=== PATIENT | male | born 1980 | race Caucasian/White ===

== ENCOUNTER 2021-04-13 13:23 | Observation (INO) ==
[2021-04-13] MEDS ORDERED: LORazepam 1 MG/2 ML VIAL IV STA (13:49)
[2021-04-13] MEDS ORDERED: THIAMINE HCL 200 MG in SODIUM CHLORIDE 0.9% 50 ML IV STA (13:49)
[2021-04-13] MEDS ORDERED: ONDANSETRON INJ 2 MG/ML 2 ML VIAL IV STA (13:49)
[2021-04-13] MEDS ORDERED: SODIUM CHLORIDE 0.9% 1000ML 1,000 ML IV STA (13:49)
--- NOTE | 2021-04-13 14:00 | Emergency Department Note ---
Impression & Plan Chest pain, Abnormal EKG, Alcohol intoxication, Abdominal pain, epigastric ED Provider Note NAME: CORINNA BOLAND AGE: 40 SEX: M : 1980 ARRIVES VIA: Walk-In INFORMANT: Patient, ED PROVIDER(S): Kash Salazar DO CHIEF COMPLAINT: Nausea HPI: The patient is a 40-year-old male who presented to the emergency department for an evaluation of nausea. The patient has a history of chronic alcoholism. He does drink alcohol almost daily. He drinks mostly hard liquor including rum. The patient states he started feeling ill over the last 2 to 3 days. He denies having a fever. Has had a nonproductive cough. He has pain in his epigastric region as well as his upper abdomen. He denies having any lower extremity pain or swelling. He has had no recent falls. He is no seizure or blackouts. The patient thinks he might be having withdrawal symptoms. He did not see a provider prior to coming to the emergency department. He tried drinking some rum today prior to coming to the emergency department with no improvement of his symptoms. The patient has had no hematemesis or black stools. ROS: See above HPI for pertinent positives & negatives. A total of 10 systems reviewed and were otherwise negative. PAST MEDICAL HISTORY: See Below PAST SURGICAL HISTORY: See Below FAMILY HISTORY: See Below SOCIAL HISTORY: See Below HOME MEDICATIONS: See Below ALLERGIES: See Below VITALS: See Below PHYSICAL EXAMINATION: GENERAL: The patient is awake and alert. The patient is somewhat anxious appea ring. EYES: The conjunctivae are clear. The pupils are round and reactive. EARS, NOSE, MOUTH AND THROAT: The nose is without any evidence of any deformity. NECK: The neck is nontender and supple. RESPIRATORY: Normal respiratory effort is noted there is no evidence of wheezing rhonchi or rales CARDIOVASCULAR: Tachycardic rate with regular rhythm was noted. There is no definite murmur. GASTROINTESTINAL: The abdomen is mildly distended and diffusely tender. There is no specific guarding or rigidity noted. MUSCULOSKELETAL/EXTREMITIES: There is no evidence of gross deformity full range of motion is noted in the hips and shoulders. SKIN: There is no obvious evidence of any rash. There are no petechiae, pallor or cyanosis noted. NEUROLOGIC: Patient is awake alert and oriented x3 strength is symmetric patellar reflexes are 2+ bilaterally MEDICAL DECISION MAKING: The patient is a 40-year-old male who presented to the emergency department for an evaluation of epigastric pain. The patient has a history of alcohol abuse. The patient was treated with IV fluids and IV antiemetics. He was also treated with proton pump inhibitor and H2 blockers. The patient's EKG showed ischemic changes. They were not related to any specific electrolyte abnormality. I discussed the patient's laboratory and radiographic studies with him because of his abnormal EKG he also had further radiographic studies including CT of the chest abdomen and pelvis. The patient was reevaluated multiple times and was feeling better on subsequent reevaluation. His cardiac biomarker was negative. Because of his abnormal findings I did discuss his case with the on-call [facility]. They have agreed to evaluate the patient in the emergency department for further management and disposition. Triage Nursing notes reviewed. Prior medical records reviewed Vital Signs: reviewed and remarkable for no significant abnormalities Differential diagnosis: Cardiac ischemia, aortic dissection, pulmonary embolism, pneumothorax, pneumonia, pericarditis, myocarditis, esophageal rupture, GERD, cholecystitis, pancreatitis, musculoskeletal, as well as other pathologies. ER treatment provided: See below Diagnostics interpreted by me: ECG: EKG was obtained in the emergency department. My interpretation is sinus tachycardia 105 bpm. There was no ectopy. Inferior and lateral T wave versions were noted. Inferior lateral ST segment abnormalities were noted. LVH was suggested by voltage criteria. This was compared to a tracing from June [id number]. The changes are new compared to the earlier tracing. Cardiac Monitoring: An order was placed for continuous cardiac monitoring. The monitor shows a rate of 110 bpm with sinus tach rhythm. Laboratory studies: As stated above and show below. Imaging studies: See below Consultation(s): 1650: I discussed this case with Dr. Acuna who is on-call for the [facility] group. Past Med/Surg History Medical History GERD (gastroesophageal reflux disease) Surgical History No significant past surgical history Family History (Updated 04/13/21 @ 17:46 by Sweta cAuna DO) Other Family history non-contributory Social History Smoking Status: Never smoker Hx Alcohol Use: Yes Alcohol type: beer and hard liquor Alcohol Intake Frequency: 4 or More x per/Week Hx Substance Use: No Preferred Language: Dutch Communication Ability: Effective [employer] Operator Required: No Beliefs That Will Affect Care: None marital status: Current Living Situation: Spouse and Family Current Living Situation Comment: Two sons. current occupational status: employed Other Information That Helps Us Care for You: No Feels Safe at Home: Yes Safety Concerns: Feels Safe At This Time Assistive Devices: None Allergies Allergies Allergy/AdvReac Type Severity Reaction Status Date / Time No Known Allergies Allergy Unverified 04/13/21 14:44 Home Meds Home Medications Medication Instructions Recorded Confirmed omeprazole 20 mg capsule,delayed 20 mg PO QAM 06/29/20 04/13/21 release smzfofcr-yhdrmuva-ntrgm acid 400 1 tab PO QAM 04/13/21 04/13/21 mcg-vit K 20 mcg-lycop 300 mcg tablet (One-A-Day Men's Multivitamin) Results & Data (ED) Vital Signs Vital Signs - 24 hr 04/13/21 13:35 04/13/21 14:30 04/13/21 16:00 Temperature 37.3 C Temperature Source Oral Pulse Rate 132 H 99 H 119 H Pulse Rate from SpO2 Sensor 100 H Pulse Rhythm Regular Pulse Strength Normal Respiratory Rate 20 25 H 14 Respiratory Effort / Characteristics Non-Labored Spontaneous Respiratory Depth Normal Respiratory Pattern Regular Blood Pressure 142/103 H 137/94 128/94 Blood Pressure Mean 116 108 105 Blood Pressure Position Sitting Pulse Oximetry 95 94 96 Oxygen Delivery Method Room Air Sepsis Recent Fever Within 48 Hours No Sepsis New/Unexplained Change in Mental Status No Sepsis Action Taken by Nursing No Action Required 04/13/21 16:30 04/13/21 17:00 04/13/21 17:30 Temperature Temperature Source Pulse Rate 98 H 117 H 119 H Pulse Rate from SpO2 Sensor 113 H 112 H Pulse Rhythm Pulse Strength Respiratory Rate 22 20 22 Respiratory Effort / Characteristics Respiratory Depth Respiratory Pattern Blood Pressure 125/89 146/109 H 146/91 H Blood Pressure Mean 101 121 109 Blood Pressure Position Pulse Oximetry 96 95 94 Oxygen Delivery Method Sepsis Recent Fever Within 48 Hours Sepsis New/Unexplained Change in Mental Status Sepsis Action Taken by Jail Medications Current Medication List: was personally reviewed by me Laboratory Data Attestation: I reviewed the patient's lab results. Result diagrams: 04/13/21 14:03 04/13/21 14:03 Lab Results 04/13/21 04/13/21 04/13/21 Range/Units 14:03 14:03 14:03 WBC 6.28 (4.8-10.8) K/uL RBC 5.09 (4.7-6.1) M/uL Hgb 16.2 (14.0-18.0) g/dL POC Hgb (14.0-18.0) g/dl Hct 47.5 (42-52) % POC Hct (42-52) % MCV 93.3 (80-100) fL MCH 31.8 (25-34) pg MCHC 34.1 (32-36) g/dL RDW Std Deviation 43.9 (36.4-46.3) fL RDW Coeff of Dudley 12.7 (11.5-14.5) % Plt Count 281 (130-400) K/uL MPV 10.1 (7.4-10.4) fL Immature Gran % (Auto) 0.2 % Neut % (Auto) 62.5 % Lymph % (Auto) 30.1 % Valencia % (Auto) 5.7 % Eos % (Auto) 1.0 % Baso % (Auto) 0.5 % Neut # (Auto) 3.93 (1.4-6.5) K/uL Lymph # (Auto) 1.89 (1.2-3.4) K/uL Valencia # (Auto) 0.36 (0.11-0.59) K/uL Eos # (Auto) 0.06 (0-0.5) K/uL Baso # (Auto) 0.03 (0-0.2) K/uL Immature Gran # (Auto) 0.01 (0.00-0.02) K/uL PT 9.8 (9.0-12.0) Seconds INR 1.0 (0.9-1.1) APTT 24.5 (21.0-31.0) Seconds PTT Ratio 0.9 POC Sodium (135-144) mmol/L Sodium 139 (136-145) mmol/L POC Potassium (3.3-5.0) mmol/L Potassium 3.7 (3.5-5.1) mmol/L POC Chloride (101-112) mmol/L Chloride 105 (98-107) mmol/L Carbon Dioxide 27 (21-32) mmol/L POC Total CO2 (24-31) mmol/L Anion Gap 7.0 (3-11) POC Anion Gap (16-25) mmol/L POC BUN (7-18) mg/dl BUN 6 L (7-18) mg/dl Creatinine 1.05 (0.6-1.4) mg/dl POC Creatinine (0.6-1.3) mg/dl Est Cr Clr Drug Dosing 100.0 ml/min Est GFR ( Amer) 103.1 ml/min Est GFR (Non-Af Amer) 89.0 ml/min BUN/Creatinine Ratio 6.0 L (10-20) Glucose 108 H (70-99) mg/dl POC Glucose (other) (70-99) mg/dl Calcium 9.1 (8.5-10.1) mg/dl POC Ioniz Calcium Cierra (1.12-1.32) mmol/l Magnesium (1.8-2.4) mg/dl Total Bilirubin 0.5 (0.2-1) mg/dl AST 69 H (15-37) U/L ALT 60 (12-78) U/L Alkaline Phosphatase 97 (45-117) U/L Troponin I < 0.015 (0-0.045) ng/ml Total Protein 8.5 H (6.4-8.2) gm/dl Albumin 4.1 (3.4-5.0) gm/dl Globulin 4.4 H (2.5-4.0) gm/dl Albumin/Globulin Ratio 0.9 (0.9-2) Lipase 295 (73-393) U/L TSH (0.300-4.500) uIu/ml Urine Color Urine Appearance (Clear) Urine pH (4.5-7.5) Ur Specific [place] (1.000-1.030) Urine Protein (Negative) Urine Glucose (UA) (Negative) Urine Ketones (Negative) Urine Blood (Negative) Urine Nitrite (Negative) Urine Bilirubin (Negative) Urine Urobilinogen (Negative) Ur Leukocyte Esterase (Negative) Urine Opiates Screen (Neg) Ur Methadone, Qual (Neg) Urine Barbiturates (Neg) Ur Phencyclidine (PCP) (Neg) U Amphetamin/Meth Scrn (Neg) MDMA (Ecstasy) Screen (Neg) U Benzodiazepines Scrn (Neg) Ur Cocaine Metabolite (Neg) U Marijuana (THC) Screen (Neg) Ethyl Alcohol mg/dL (0-3) mg/dl COVID-19 Eval Order SARS-CoV-2 (PCR) (Negative) 04/13/21 04/13/21 04/13/21 Range/Units 14:03 14:03 14:14 WBC (4.8-10.8) K/uL RBC (4.7-6.1) M/uL Hgb (14.0-18.0) g/dL POC Hgb 17.0 (14.0-18.0) g/dl Hct (42-52) % POC Hct 50 (42-52) % MCV (80-100) fL MCH (25-34) pg MCHC (32-36) g/dL RDW Std Deviation (36.4-46.3) fL RDW Coeff of Dudley (11.5-14.5) % Plt Count (130-400) K/uL MPV (7.4-10.4) fL Immature Gran % (Auto) % Neut % (Auto) % Lymph % (Auto) % [place] % (Auto) % Eos % (Auto) % Baso % (Auto) % Neut # (Auto) (1.4-6.5) K/uL Lymph # (Auto) (1.2-3.4) K/uL [place] # (Auto) (0.11-0.59) K/uL Eos # (Auto) (0-0.5) K/uL Baso # (Auto) (0-0.2) K/uL Immature Gran # (Auto) (0.00-0.02) K/uL PT (9.0-12.0) Seconds INR (0.9-1.1) APTT (21.0-31.0) Seconds PTT Ratio POC Sodium 142 (135-144) mmol/L Sodium (136-145) mmol/L POC Potassium 3.7 (3.3-5.0) mmol/L Potassium (3.5-5.1) mmol/L POC Chloride 102 (101-112) mmol/L Chloride (98-107) mmol/L Carbon Dioxide (21-32) mmol/L POC Total CO2 24 (24-31) mmol/L Anion Gap (3-11) POC Anion Gap 21.0 (16-25) mmol/L POC BUN 5 L (7-18) mg/dl BUN (7-18) mg/dl Creatinine (0.6-1.4) mg/dl POC Creatinine 1.3 (0.6-1.3) mg/dl Est Cr Clr Drug Dosing ml/min Est GFR ( Amer) ml/min Est GFR (Non-Af Amer) ml/min BUN/Creatinine Ratio (10-20) Glucose (70-99) mg/dl POC Glucose (other) 110 H (70-99) mg/dl Calcium (8.5-10.1) mg/dl POC Ioniz Calcium Cierra 1.01 L (1.12-1.32) mmol/l Magnesium 2.2 (1.8-2.4) mg/dl Total Bilirubin (0.2-1) mg/dl AST (15-37) U/L ALT (12-78) U/L Alkaline Phosphatase (45-117) U/L Troponin I (0-0.045) ng/ml Total Protein (6.4-8.2) gm/dl Albumin (3.4-5.0) gm/dl Globulin (2.5-4.0) gm/dl Albumin/Globulin Ratio (0.9-2) Lipase (73-393) U/L TSH 2.050 (0.300-4.500) uIu/ml Urine Color Urine Appearance (Clear) Urine pH (4.5-7.5) Ur Specific [place] (1.000-1.030) Urine Protein (Negative) Urine Glucose (UA) (Negative) Urine Ketones (Negative) Urine Blood (Negative) Urine Nitrite (Negative) Urine Bilirubin (Negative) Urine Urobilinogen (Negative) Ur Leukocyte Esterase (Negative) Urine Opiates Screen (Neg) Ur Methadone, Qual (Neg) Urine Barbiturates (Neg) Ur Phencyclidine (PCP) (Neg) U Amphetamin/Meth Scrn (Neg) MDMA (Ecstasy) Screen (Neg) U Benzodiazepines Scrn (Neg) Ur Cocaine Metabolite (Neg) U Marijuana (THC) Screen (Neg) Ethyl Alcohol mg/dL 305.0 H (0-3) mg/dl COVID-19 Eval Order SARS-CoV-2 (PCR) (Negative) 04/13/21 04/13/21 04/13/21 Range/Units 16:34 16:34 16:51 WBC (4.8-10.8) K/uL RBC (4.7-6.1) M/uL Hgb (14.0-18.0) g/dL POC Hgb (14.0-18.0) g/dl Hct (42-52) % POC Hct (42-52) % MCV (80-100) fL MCH (25-34) pg MCHC (32-36) g/dL RDW Std Deviation (36.4-46.3) fL RDW Coeff of Dudley (11.5-14.5) % Plt Count (130-400) K/uL MPV (7.4-10.4) fL Immature Gran % (Auto) % Neut % (Auto) % Lymph % (Auto) % [place] % (Auto) % Eos % (Auto) % Baso % (Auto) % Neut # (Auto) (1.4-6.5) K/uL Lymph # (Auto) (1.2-3.4) K/uL [place] # (Auto) (0.11-0.59) K/uL Eos # (Auto) (0-0.5) K/uL Baso # (Auto) (0-0.2) K/uL Immature Gran # (Auto) (0.00-0.02) K/uL PT (9.0-12.0) Seconds INR (0.9-1.1) APTT (21.0-31.0) Seconds PTT Ratio POC Sodium (135-144) mmol/L Sodium (136-145) mmol/L POC Potassium (3.3-5.0) mmol/L Potassium (3.5-5.1) mmol/L POC Chloride (101-112) mmol/L Chloride (98-107) mmol/L Carbon Dioxide (21-32) mmol/L POC Total CO2 (24-31) mmol/L Anion Gap (3-11) POC Anion Gap (16-25) mmol/L POC BUN (7-18) mg/dl BUN (7-18) mg/dl Creatinine (0.6-1.4) mg/dl POC Creatinine (0.6-1.3) mg/dl Est Cr Clr Drug Dosing ml/min Est GFR ( Amer) ml/min Est GFR (Non-Af Amer) ml/min BUN/Creatinine Ratio (10-20) Glucose (70-99) mg/dl POC Glucose (other) (70-99) mg/dl Calcium (8.5-10.1) mg/dl POC Ioniz Calcium Cierra (1.12-1.32) mmol/l Magnesium (1.8-2.4) mg/dl Total Bilirubin (0.2-1) mg/dl AST (15-37) U/L ALT (12-78) U/L Alkaline Phosphatase (45-117) U/L Troponin I (0-0.045) ng/ml Total Protein (6.4-8.2) gm/dl Albumin (3.4-5.0) gm/dl Globulin (2.5-4.0) gm/dl Albumin/Globulin Ratio (0.9-2) Lipase (73-393) U/L TSH (0.300-4.500) uIu/ml Urine Color Yellow Urine Appearance Clear (Clear) Urine pH 5.5 (4.5-7.5) Ur Specific [place] > 1.045 H (1.000-1.030) Urine Protein Negative (Negative) Urine Glucose (UA) Negative (Negative) Urine Ketones Negative (Negative) Urine Blood Negative (Negative) Urine Nitrite Negative (Negative) Urine Bilirubin Negative (Negative) Urine Urobilinogen Negative (Negative) Ur Leukocyte Esterase Negative (Negative) Urine Opiates Screen (Neg) Ur Methadone, Qual (Neg) Urine Barbiturates (Neg) Ur Phencyclidine (PCP) (Neg) U Amphetamin/Meth Scrn (Neg) MDMA (Ecstasy) Screen (Neg) U Benzodiazepines Scrn (Neg) Ur Cocaine Metabolite (Neg) U Marijuana (THC) Screen (Neg) Ethyl Alcohol mg/dL (0-3) mg/dl COVID-19 Eval Order Covid19 at [facility] SARS-CoV-2 (PCR) NEGATIVE (Negative) 04/13/21 Range/Units 16:51 WBC (4.8-10.8) K/uL RBC (4.7-6.1) M/uL Hgb (14.0-18.0) g/dL POC Hgb (14.0-18.0) g/dl Hct (42-52) % POC Hct (42-52) % MCV (80-100) fL MCH (25-34) pg MCHC (32-36) g/dL RDW Std Deviation (36.4-46.3) fL RDW Coeff of Dudley (11.5-14.5) % Plt Count (130-400) K/uL MPV (7.4-10.4) fL Immature Gran % (Auto) % Neut % (Auto) % Lymph % (Auto) % [place] % (Auto) % Eos % (Auto) % Baso % (Auto) % Neut # (Auto) (1.4-6.5) K/uL Lymph # (Auto) (1.2-3.4) K/uL [place] # (Auto) (0.11-0.59) K/uL Eos # (Auto) (0-0.5) K/uL Baso # (Auto) (0-0.2) K/uL Immature Gran # (Auto) (0.00-0.02) K/uL PT (9.0-12.0) Seconds INR (0.9-1.1) APTT (21.0-31.0) Seconds PTT Ratio POC Sodium (135-144) mmol/L Sodium (136-145) mmol/L POC Potassium (3.3-5.0) mmol/L Potassium (3.5-5.1) mmol/L POC Chloride (101-112) mmol/L Chloride (98-107) mmol/L Carbon Dioxide (21-32) mmol/L POC Total CO2 (24-31) mmol/L Anion Gap (3-11) POC Anion Gap (16-25) mmol/L POC BUN (7-18) mg/dl BUN (7-18) mg/dl Creatinine (0.6-1.4) mg/dl POC Creatinine (0.6-1.3) mg/dl Est Cr Clr Drug Dosing ml/min Est GFR ( Amer) ml/min Est GFR (Non-Af Amer) ml/min BUN/Creatinine Ratio (10-20) Glucose (70-99) mg/dl POC Glucose (other) (70-99) mg/dl Calcium (8.5-10.1) mg/dl POC Ioniz Calcium Cierra (1.12-1.32) mmol/l Magnesium (1.8-2.4) mg/dl Total Bilirubin (0.2-1) mg/dl AST (15-37) U/L ALT (12-78) U/L Alkaline Phosphatase (45-117) U/L Troponin I (0-0.045) ng/ml Total Protein (6.4-8.2) gm/dl Albumin (3.4-5.0) gm/dl Globulin (2.5-4.0) gm/dl Albumin/Globulin Ratio (0.9-2) Lipase (73-393) U/L TSH (0.300-4.500) uIu/ml Urine Color Urine Appearance (Clear) Urine pH (4.5-7.5) Ur Specific [place] (1.000-1.030) Urine Protein (Negative) Urine Glucose (UA) (Negative) Urine Ketones (Negative) Urine Blood (Negative) Urine Nitrite (Negative) Urine Bilirubin (Negative) Urine Urobilinogen (Negative) Ur Leukocyte Esterase (Negative) Urine Opiates Screen Neg (Neg) Ur Methadone, Qual Neg (Neg) Urine Barbiturates Neg (Neg) Ur Phencyclidine (PCP) Neg (Neg) U Amphetamin/Meth Scrn Neg (Neg) MDMA (Ecstasy) Screen Neg (Neg) U Benzodiazepines Scrn Neg (Neg) Ur Cocaine Metabolite Neg (Neg) U Marijuana (THC) Screen Neg (Neg) Ethyl Alcohol mg/dL (0-3) mg/dl COVID-19 Eval Order SARS-CoV-2 (PCR) (Negative) Administered Medications Sodium Chloride (Nss 1000ml) 1,000 mls @ 125 mls/hr IV .Q8H TROY Stop: 04/14/21 11:04 Last Admin: 04/13/21 19:39 Dose: 125 mls/hr Documented by: [id number] Folic Acid 1 mg/ Syringe 10 mls @ 5 mls/min IV QAM TROY Stop: 05/13/21 19:59 Last Admin: 04/13/21 20:30 Dose: 5 mls/min Documented by: [id number] Discontinued Medications Gabapentin (Gabapentin 600 Mg Tab) 1,200 mg PO 1999 ONE Stop: 04/13/21 20:01 Last Admin: 04/13/21 20:30 Dose: 1,200 mg Documented by: [id number] Sodium Chloride (Nss 1000ml) 1,000 mls @ 999 mls/hr IV .Q1H1M STA Stop: 04/13/21 14:49 Last Infusion: 04/13/21 15:20 Dose: 0 mls/hr Documented by: [id number] Admin: 04/13/21 14:19 Dose: 999 mls/hr Documented by: [id number] Lorazepam (Ativan) 1 mg in 2 mls @ 2 mls/min IV NOW STA Stop: 04/13/21 13:50 Last Admin: 04/13/21 14:19 Dose: 2 mls/min Documented by: [id number] Thiamine HCl 200 mg/ Sodium (Chloride) 52 mls @ 208 mls/hr IV NOW STA Stop: 04/13/21 14:03 Last Infusion: 04/13/21 14:51 Dose: 0 mls/hr Documented by: [id number] Admin: 04/13/21 14:36 Dose: 208 mls/hr Documented by: [id number] Famotidine (Pepcid 20mg Iv Push) 20 mg in 5 mls @ 2.5 mls/min IV NOW STA Stop: 04/13/21 16:37 Last Admin: 04/13/21 17:25 Dose: 2.5 mls/min Documented by: [id number] Pantoprazole Sodium 40 mg/ (Syringe) 10 mls @ 5 mls/min IV NOW ONE Stop: 04/13/21 16:37 Last Admin: 04/13/21 17:25 Dose: 5 mls/min Documented by: [id number] Lorazepam (Ativan) 2 mg in 4 mls @ 4 mls/min IV NOW STA Stop: 04/13/21 17:29 Last Admin: 04/13/21 17:33 Dose: 4 mls/min Documented by: [id number] Ioversol (Optiray 320 125ml) 120 ml IV ONCE ONE Stop: 04/13/21 15:04 Last Admin: 04/13/21 15:03 Dose: 120 ml Documented by: [id number] Lorazepam (Lorazepam 2 Mg/4 Ml Vial) Confirm Administered Dose 2 mg .ROUTE .STK- MED ONE Stop: 04/13/21 17:31 Last Admin: 04/13/21 17:33 Dose: Not Given Documented by: [id number] Ondansetron HCl (Ondansetron Inj 2 Mg/Ml 2 Ml Vial) 4 mg IV NOW STA Stop: 04/13/21 13:50 Last Admin: 04/13/21 14:20 Dose: 4 mg Documented by: [id number] Imaging Data Radiologist's Impression: KUB X-Ray 04/13/21 13:49 XR chest 1V portable, XR KUB/Abdomen 1 view HISTORY: 40 years-old Male pain acute chest and abdominal pain COMPARISON: Chest radiograph 06/29/2020 TECHNIQUE: AP view the chest with KUB radiograph FINDINGS: Cardiac mediastinal and hilar silhouettes are within normal limits. No pneumothorax, pleural effusion, airspace consolidation or overt pulmonary edema. No acute fracture. Nonobstructive bowel gas pattern. No pneumatosis or pneumoperitoneum. No urolith. IMPRESSION: 1. No acute processes of the chest. 2. Nonobstructive bowel gas pattern. ACT 112: Negative or not required by law. The above report was generated using voice recognition software. It may contain grammatical, syntax or spelling errors. Electronically signed by: Joe Clarke M.D. 04/13/2021 2:23 PM Chest X-Ray 04/13/21 13:51 XR chest 1V portable, XR KUB/Abdomen 1 view HISTORY: 40 years-old Male pain acute chest and abdominal pain COMPARISON: Chest radiograph 06/29/2020 TECHNIQUE: AP view the chest with KUB radiograph FINDINGS: Cardiac mediastinal and hilar silhouettes are within normal limits. No pneumothorax, pleural effusion, airspace consolidation or overt pulmonary edema. No acute fracture. Nonobstructive bowel gas pattern. No pneumatosis or pneumoperitoneum. No urolith. IMPRESSION: 1. No acute processes of the chest. 2. Nonobstructive bowel gas pattern. ACT 112: Negative or not required by law. The above report was generated using voice recognition software. It may contain grammatical, syntax or spelling errors. Electronically signed by: Joe Clarke M.D. 04/13/2021 2:23 PM Abdomen/Pelvis CT 04/13/21 14:43 CT angio chest PE protocol, CT abd pelvis IV con only HISTORY: 40 years-old Male with PE. Acute shortness breath with upper abdominal pain TECHNIQUE: Multiple CTA images of the chest were obtained after the intravenous administration of 120 ml Optiray. Coronal and sagittal MIPS were obtained from the axial data set and were submitted for review. All measurements were obtained according to NASCET criteria. CT abdomen and pelvis with IV contrast only was also obtained. A dose lowering technique was utilized adhering to the principles of ALARA. COMPARISON: None. FINDINGS: CTA: The segmental and subsegmental pulmonary tree all branches are suboptimally visualized secondary to respiratory motion. No pulmonary emboli identified. Normal thoracic aorta.Heart size is normal. CT CHEST: No dominant thyroid nodule is seen. No pathologically adenopathy by CT size criteria. There is no pneumothorax, pleural effusion or focal airspace consolidation. The imaged upper abdominal structures are normal. The osseous structures appear intact. CT ABDOMEN/PELVIS: No pneumatosis or pneumoperitoneum. Unremarkable spleen, pancreas and adrenal glands. Mild gallbladder distention with equivocal gallbladder wall thickening. Hepatic steatosis. No evidence of cirrhosis or hepatic mass lesion. Patency of the hepatic and portal veins. Unremarkable kidneys. No hydronephrosis. Mild to moderate urinary bladder distention. Aorta and IVC are unremarkable. There is no adenopathy. No bowel obstruction or bowel wall thickening. No ascites or mesenteric inflammation. Normal appendix. Tiny fat filled periumbilical hernia. No acute fracture. Transitional lumbosacral anatomy. IMPRESSION: 1. No acute intrathoracic abnormality. No pulmonary emboli. 2. No bowel obstruction or bowel wall thickening. Normal appendix. 3. Mild gallbladder distention with equivocal wall thickening. This finding could be correlated with right upper quadrant abdominal ultrasound if clinically indicated. 4. Hepatic steatosis. ACT 112: Negative or not required by law. The above report was generated using voice recognition software. It may contain grammatical, syntax or spelling errors. Electronically signed by: Joe Clarke M.D. 04/13/2021 3:41 PM Chest CTA 04/13/21 14:43 CT angio chest PE protocol, CT abd pelvis IV con only HISTORY: 40 years-old Male with PE. Acute shortness breath with upper abdominal pain TECHNIQUE: Multiple CTA images of the chest were obtained after the intravenous administration of 120 ml Optiray. Coronal and sagittal MIPS were obtained from the axial data set and were submitted for review. All measurements were obtained according to NASCET criteria. CT abdomen and pelvis with IV contrast only was also obtained. A dose lowering technique was utilized adhering to the principles of ALARA. COMPARISON: None. FINDINGS: CTA: The segmental and subsegmental pulmonary tree all branches are suboptimally visualized secondary to respiratory motion. No pulmonary emboli identified. Normal thoracic aorta.Heart size is normal. CT CHEST: No dominant thyroid nodule is seen. No pathologically adenopathy by CT size criteria. There is no pneumothorax, pleural effusion or focal airspace consolidation. The imaged upper abdominal structures are normal. The osseous structures appear intact. CT ABDOMEN/PELVIS: No pneumatosis or pneumoperitoneum. Unremarkable spleen, pancreas and adrenal glands. Mild gallbladder distention with equivocal gallbladder wall thickening. Hepatic steatosis. No evidence of cirrhosis or hepatic mass lesion. Patency of the hepatic and portal veins. Unremarkable kidneys. No hydronephrosis. Mild to moderate urinary bladder distention. Aorta and IVC are unremarkable. There is no adenopathy. No bowel obstruction or bowel wall thickening. No ascites or mesenteric inflammation. Normal appendix. Tiny fat filled periumbilical hernia. No acute fracture. Tra nsitional lumbosacral anatomy. IMPRESSION: 1. No acute intrathoracic abnormality. No pulmonary emboli. 2. No bowel obstruction or bowel wall thickening. Normal appendix. 3. Mild gallbladder distention with equivocal wall thickening. This finding could be correlated with right upper quadrant abdominal ultrasound if clinically indicated. 4. Hepatic steatosis. ACT 112: Negative or not required by law. The above report was generated using voice recognition software. It may contain grammatical, syntax or spelling errors. Electronically signed by: Joe Clarke M.D. 04/13/2021 3:41 PM Discharge Plan Visit Data Chief Complaint: Nausea Stated Complaint: CHEST PAIN, STOMACH PAIN ED Provider: Kash Salazar Discharge Problem: Chest pain, Abnormal EKG, Alcohol intoxication, Abdominal pain, epigastric Patient Disposition: Admitted As Inpatient Condition: Good Discharge Instructions Interventions: ED Discharge Assessment Last Done: 04/13/21 18:36 Discharge Problem: Chest pain Qualifiers: Chest pain type: unspecified Qualified Code(s): R07.9 - Chest pain, unspecified Alcohol intoxication Qualifiers: Complication of substance-induced condition: uncomplicated Qualified Code(s): F10.920 - Alcohol use, unspecified with intoxication, uncomplicated
--- NOTE | 2021-04-13 14:24 | XRay Report ---
XR chest 1V portable, XR KUB/Abdomen 1 view HISTORY: 40 years-old Male pain acute chest and abdominal pain COMPARISON: Chest radiograph 06/29/2020 TECHNIQUE: AP view the chest with KUB radiograph FINDINGS: Cardiac mediastinal and hilar silhouettes are within normal limits. No pneumothorax, pleural effusion , airspace consolidation or overt pulmonary edema. No acute fracture. Nonobstructive bowel gas pattern. No pneumatosis or pneumoperitoneum. No urolith. IMPRESSION: 1. No acute processes of the chest. 2. Nonobstructive bowel gas pattern. ACT 112: Negative or not required by law. The above report was generated using voice recognition software. It may contain grammatical, syntax o r spelling errors. Electronically signed by: Joe Clarke M.D. 04/13/2021 2:23 PM
[2021-04-13 14:26] LABS: iSTAT Creatinine 1.3 mg/dl (0.6-1.3); iSTAT Ionized Calcium 1.01 mmol/l (1.12-1.32); iSTAT Potassium 3.7 mmol/L (3.3-5.0)
[2021-04-13 14:31] LABS: Basophils # (auto) 0.03 K/uL (0-0.2); Basophils % (auto) 0.5 %; Eosinophils # (auto) 0.06 K/uL (0-0.5); Hematocrit (blood only) 47.5 % (42-52); Hemoglobin 16.2 g/dL (14.0-18.0); Immature Granulocytes # (auto) 0.01 K/uL (0.00-0.02); Immature Granulocytes % (auto) 0.2 %; Lymphocytes # (auto) 1.89 K/uL (1.2-3.4); Lymphocytes % (auto) 30.1 %; Mean Corpuscular Hemoglobin 31.8 pg (25-34); Mean Corpuscular Hgb Conc 34.1 g/dL (32-36); Mean Corpuscular Volume 93.3 fL (80-100); Mean Platelet Volume 10.1 fL (7.4-10.4); Monocytes # (auto) 0.36 K/uL (0.11-0.59); Monocytes % (auto) 5.7 %; Neutrophils # (auto) 3.93 K/uL (1.4-6.5); Neutrophils % (auto) 62.5 %; Platelet Count 281 K/uL (130-400); RDW Coefficient of Variation 12.7 % (11.5-14.5); RDW Standard Deviation 43.9 fL (36.4-46.3); Red Blood Count 5.09 M/uL (4.7-6.1); White Blood Count 6.28 K/uL (4.8-10.8)
[2021-04-13 14:42] LABS: Partial Thromboplastin Ratio 0.9; Partial Thromboplastin Time 24.5 Seconds (21.0-31.0); Prothrombin Time 9.8 Seconds (9.0-12.0)
[2021-04-13 14:51] LABS: Alanine Aminotransferase 60 U/L (12-78); Albumin Level 4.1 gm/dl (3.4-5.0); Aspartate Aminotransferase 69 U/L (15-37); Blood Urea Nitrogen 6 mg/dl (7-18); Calcium 9.1 mg/dl (8.5-10.1); Carbon Dioxide 27 mmol/L (21-32); Chloride 105 mmol/L (98-107); Est GFR (African American) 103.1 ml/min; Glucose 108 mg/dl (70-99); Lipase 295 U/L (73-393); Potassium 3.7 mmol/L (3.5-5.1); Sodium 139 mmol/L (136-145)
[2021-04-13 14:56] LABS: Albumin Globulin Ratio 0.9 (0.9-2); Alkaline Phosphatase 97 U/L (45-117); Bilirubin,Total 0.5 mg/dl (0.2-1); Globulin 4.4 gm/dl (2.5-4.0); Total Protein 8.5 gm/dl (6.4-8.2); Troponin I < 0.015 ng/ml (0-0.045)
[2021-04-13] MEDS ORDERED: OPTIRAY 320 125ml IV ONE (15:03)
[2021-04-13 15:22] LABS: Magnesium 2.2 mg/dl (1.8-2.4)
--- NOTE | 2021-04-13 15:42 | CT Scan Report ---
CT angio chest PE protocol, CT abd pelvis IV con only HISTORY: 40 years-old Male with PE. Acute shortness breath with upper abdominal pain TECHNIQUE: Multiple CTA images of the chest were obtained after the intravenous administration of 120 ml Optiray. Coronal and sagittal MIPS were obtained from the axial data set and were submitted for review. All measurements were obtained according to NASCET criteria. CT abdomen and pelvis with IV c ontrast only was also obtained. A dose lowering technique was utilized adhering to the principles of ALARA. COMPARISON: None. FINDINGS: CTA: The segmental and subsegmental pulmonary tree all branches are suboptimally visualized secondary to r espiratory motion. No pulmonary emboli identified. Normal thoracic aorta.Heart size is normal. CT CHEST: No dominant thyroid nodule is seen. No pathologically adenopathy by CT size criteria. There is no pn eumothorax, pleural effusion or focal airspace consolidation. The imaged upper abdominal structures are normal. The osseous structures appear intact. CT ABDOMEN/PELVIS: No pneumatosis or pneumoperitoneum. Unremarkable spleen, pancreas and adrenal glands. Mild gallbladde r distention with equivocal gallbladder wall thickening. Hepatic steatosis. No evidence of cirrhosis or hepatic mass lesion. Patency of the hepatic and portal veins. Unremarkable kidneys. No hydronephrosis. Mild to moderate urinary bladder distention. Aorta and IVC a re unremarkable. There is no adenopathy. No bowel obstruction or bowel wall thickening. No ascites or mesenteric inflammation. Normal appendix. Tiny fat filled periumbilical hernia. No acute fracture. T ransitional lumbosacral anatomy. IMPRESSION: 1. No acute intrathoracic abnormality. No pulmonary emboli. 2. No bowel obstruction or bowel wall thickening. Normal appendix. 3. Mild gallbladder distention with equivocal wall thickening. This finding could be correlated with right upper quadrant abdominal ultrasound if clinically indicated. 4. Hepatic steatosis. ACT 112: Negative or not required by law. The above report was generated using voice recognition software. It may contain grammatical, syntax o r spelling errors. Electronically signed by: Joe Clarke M.D. 04/13/2021 3:41 PM
[2021-04-13] MEDS ORDERED: FAMOTIDINE 20MG IV PUSH 20 MG/5 ML SYR IV STA (16:36)
[2021-04-13] MEDS ORDERED: PANTOprazole 40 MG in SYRINGE 0 ML IV ONE (16:36)
[2021-04-13 17:12] LABS: Appearance Urine Clear (Clear); Bilirubin Urine Negative (Negative); Blood Urine Negative (Negative); Color Urine Yellow; Glucose Urine UA Negative (Negative); Ketones Urine Negative (Negative); Leukocyte Esterase Urine Negative (Negative); Nitrite Urine Negative (Negative); Protein Urine Negative (Negative); Specific Gravity Urine > 1.045 (1.000-1.030); Urobilinogen Urine Negative (Negative); pH Urine 5.5 (4.5-7.5)
[2021-04-13] MEDS ORDERED: LORazepam 2 MG/4 ML VIAL IV STA (17:28)
[2021-04-13] MEDS ORDERED: LORazepam 2 MG/4 ML VIAL ONE (17:30)
[2021-04-13] MEDS ORDERED: GABAPENTIN 1200MG ALCOHOL WITHDRAWAL LOAD PO STA (17:37)
--- NOTE | 2021-04-13 17:49 | History & Physical Report ---
Date of Service April 13, 2021 Assessment & Plan (1) Alcohol withdrawal: Plan: The patient is tachycardic and hypertensive as well as tremulous, reporting not feeling well and feeling like he is withdrawing. He reports drinking today with a significant amount of drinking alcohol continuously over the last couple of days. Unspecified quantity. He is a daily drinker. Alcohol level is 300. Appears to be withdrawing. Given thiamine and started on IV Ativan in the ER. Patient reported feeling improved with IV Ativan but this wore off. Will give additional Ativan now and placed on alcohol withdrawal scale including gabapentin for active withdrawal. He did report some acute shortness of breath with upper abdominal pain and a CTA was performed revealing no evidence of pulmonary emboli, no bowel obstruction or bowel wall thickening and a normal appendix. Some mild gallbladder distention with equivocal wall thickening was present, however, there is no right upper quadrant pain and no LFT elevation at this time. Hepatic steatosis is present which should be followed in the outpatient setting. PCU monitoring overnight with serial troponin enzymes in setting of reports of chest pain likely secondary to alcohol withdrawal and abnormal EKG. Echo in a.m. continue daily thiamine and folate. Alcohol cessation strongly advised. Clears while not eating and drinking well. We will continue with IV fluids overnight with concentrated appearing urine, likely dehydrated from the weekend. Urine tox screen negative. SARS-CoV-2 PCR negative. TSH pending (2) Alcohol abuse: Plan: Strict alcohol cessation strongly advised. (3) GERD (gastroesophageal reflux disease): Plan: Hold omeprazole which is nonformulary and give daily Protonix with as needed Pepcid as needed. (4) DVT prophylaxis: Plan: SCD/ambulation Full code Disposition-to PCU Sweta Acuna DO [facility] History of Present Illness Chief Complaint: I do not feel well Primary Care Provider: Jason Marvin MD The patient is a 40-year-old heavy alcohol user who presents after a long weekend of drinking continuously. He reports feeling uncertain with associated chest discomfort, questionable nausea, questionable palpitations, and an overall feeling of being unwell. He feels as though he is withdrawing. He reports daily drinking of approximately 3 hard liquor drinks and recently was drinking continuously for what seems to be approximately 48 hours. He cannot quantify the amount of alcohol he took in. I asked him if he drank until he blacked out and he said "no I hung in there." He denies feeling dehydrated, but is not been eating because he feels he cannot tolerate food. He denies any vomiting and has not vomited blood. He denies a history of heart problems or family history of sudden cardiac or other early age heart issues in his family members. He denies tobacco use or other illicit drug use. He reports feeling shaky. Allergies Allergy/AdvReac Type Severity Reaction Status Date / Time No Known Allergies Allergy Unverified 04/13/21 14:44 Home Medications Medication Instructions Recorded Confirmed Type omeprazole 20 mg capsule,delayed 20 mg PO QAM 06/29/20 04/13/21 History release bxvlvxxe-wvrtphoq-yhaxm acid 400 1 tab PO QAM 04/13/21 04/13/21 History mcg-vit K 20 mcg-lycop 300 mcg tablet (One-A-Day Men's Multivitamin) Past Med/Surg History Medical History GERD (gastroesophageal reflux disease) Surgical History No significant past surgical history Family History (Updated 04/13/21 @ 17:46 by Sweta Acuna DO) Other Family history non-contributory Social History Smoking Status: Never smoker Hx Alcohol Use: Yes Alcohol type: hard liquor Alcohol Intake Frequency: 4 or More x per/Week Preferred Language: Japanese marital status: Current Living Situation: Spouse and Family current occupational status: employed Feels Safe at Home: Yes Review of Systems Review of Systems: At least ten systems were reviewed and negative except as indicated in HPI above. Physical Exam Physical Exam: CONSTITUTIONAL: WNWD, vitals as above, generally ill-appearing EYES: normal conjunctivae, no scleral icterus ENT: external ear and nose normal, MMM NECK: trachea midline RESPIRATORY: clear to auscultation bilaterally, no crackles, rales or wheezes, normal respiratory effort CARDIOVASCULAR: tachy rate and rhythm, S1 and 2 heard without murmurs, gallops or rubs, no JVD, no peripheral edema CHEST: inspection of chest was normal GASTROINTESTINAL: soft, nontender, no hepatomegaly, no guarding, nondistended. MUSCULOSKELETAL: strength 5/5 throughout, head is normocephalic and atraumatic SKIN: warm and dry NEUROLOGIC: No facial palsy, no dysarthria. CN 2-12 grossly intact, no sensory deficit, normal cognition, normal speech, slightly tremulous PSYCHIATRIC: alert cooperative and oriented to person, place and time. Anxious-appearing. Results & Data Results & Data ([facility]) Vital Signs (Past 12 Hours) Vital Signs Temp Pulse Resp BP Pulse Ox 04/13/21 17:30 119 H 22 146/91 H 94 04/13/21 17:00 117 H 20 146/109 H 95 04/13/21 16:30 98 H 22 125/89 96 04/13/21 16:00 119 H 14 128/94 96 04/13/21 14:30 99 H 25 H 137/94 94 04/13/21 13:35 37.3 C 132 H 20 142/103 H 95 Laboratory Results Short CBC 04/13/21 04/13/21 04/13/21 Range/Units 14:03 14:03 14:03 WBC 6.28 (4.8-10.8) K/uL RBC 5.09 (4.7-6.1) M/uL Hgb 16.2 (14.0-18.0) g/dL POC Hgb (14.0-18.0) g/dl Hct 47.5 (42-52) % POC Hct (42-52) % MCV 93.3 (80-100) fL MCH 31.8 (25-34) pg MCHC 34.1 (32-36) g/dL RDW Std Deviation 43.9 (36.4-46.3) fL RDW Coeff of Dud[place] 12.7 (11.5-14.5) % Plt Count 281 (130-400) K/uL MPV 10.1 (7.4-10.4) fL Immature Gran % (Auto) 0.2 % Neut % (Auto) 62.5 % Lymph % (Auto) 30.1 % [place] % (Auto) 5.7 % Eos % (Auto) 1.0 % Baso % (Auto) 0.5 % Neut # (Auto) 3.93 (1.4-6.5) K/uL Lymph # (Auto) 1.89 (1.2-3.4) K/uL [place] # (Auto) 0.36 (0.11-0.59) K/uL Eos # (Auto) 0.06 (0-0.5) K/uL Baso # (Auto) 0.03 (0-0.2) K/uL Immature Gran # (Auto) 0.01 (0.00-0.02) K/uL PT 9.8 (9.0-12.0) Seconds INR 1.0 (0.9-1.1) APTT 24.5 (21.0-31.0) Seconds PTT Ratio 0.9 POC Sodium (135-144) mmol/L Sodium 139 (136-145) mmol/L POC Potassium (3.3-5.0) mmol/L Potassium 3.7 (3.5-5.1) mmol/L POC Chloride (101-112) mmol/L Chloride 105 (98-107) mmol/L Carbon Dioxide 27 (21-32) mmol/L POC Total CO2 (24-31) mmol/L Anion Gap 7.0 (3-11) POC Anion Gap (16-25) mmol/L POC BUN (7-18) mg/dl BUN 6 L (7-18) mg/dl Creatinine 1.05 (0.6-1.4) mg/dl POC Creatinine (0.6-1.3) mg/dl Est Cr Clr Drug Dosing 100.0 ml/min Est GFR ( Amer) 103.1 ml/min Est GFR (Non-Af Amer) 89.0 ml/min BUN/Creatinine Ratio 6.0 L (10-20) Glucose 108 H (70-99) mg/dl POC Glucose (other) (70-99) mg/dl Calcium 9.1 (8.5-10.1) mg/dl POC Ioniz Calcium Cierra (1.12-1.32) mmol/l Magnesium (1.8-2.4) mg/dl Total Bilirubin 0.5 (0.2-1) mg/dl AST 69 H (15-37) U/L ALT 60 (12-78) U/L Alkaline Phosphatase 97 (45-117) U/L Troponin I < 0.015 (0-0.045) ng/ml Total Protein 8.5 H (6.4-8.2) gm/dl Albumin 4.1 (3.4-5.0) gm/dl Globulin 4.4 H (2.5-4.0) gm/dl Albumin/Globulin Ratio 0.9 (0.9-2) Lipase 295 (73-393) U/L Urine Color Urine Appearance (Clear) Urine pH (4.5-7.5) Ur Specific [place] (1.000-1.030) Urine Protein (Negative) Urine Glucose (UA) (Negative) Urine Ketones (Negative) Urine Blood (Negative) Urine Nitrite (Negative) Urine Bilirubin (Negative) Urine Urobilinogen (Negative) Ur Leukocyte Esterase (Negative) Ethyl Alcohol mg/dL (0-3) mg/dl COVID-19 Eval Order 04/13/21 04/13/21 04/13/21 Range/Units 14:03 14:03 14:14 WBC (4.8-10.8) K/uL RBC (4.7-6.1) M/uL Hgb (14.0-18.0) g/dL POC Hgb 17.0 (14.0-18.0) g/dl Hct (42-52) % POC Hct 50 (42-52) % MCV (80-100) fL MCH (25-34) pg MCHC (32-36) g/dL RDW Std Deviation (36.4-46.3) fL RDW Coeff of Dud[place] (11.5-14.5) % Plt Count (130-400) K/uL MPV (7.4-10.4) fL Immature Gran % (Auto) % Neut % (Auto) % Lymph % (Auto) % [place] % (Auto) % Eos % (Auto) % Baso % (Auto) % Neut # (Auto) (1.4-6.5) K/uL Lymph # (Auto) (1.2-3.4) K/uL [place] # (Auto) (0.11-0.59) K/uL Eos # (Auto) (0-0.5) K/uL Baso # (Auto) (0-0.2) K/uL Immature Gran # (Auto) (0.00-0.02) K/uL PT (9.0-12.0) Seconds INR (0.9-1.1) APTT (21.0-31.0) Seconds PTT Ratio POC Sodium 142 (135-144) mmol/L Sodium (136-145) mmol/L POC Potassium 3.7 (3.3-5.0) mmol/L Potassium (3.5-5.1) mmol/L POC Chloride 102 (101-112) mmol/L Chloride (98-107) mmol/L Carbon Dioxide (21-32) mmol/L POC Total CO2 24 (24-31) mmol/L Anion Gap (3-11) POC Anion Gap 21.0 (16-25) mmol/L POC BUN 5 L (7-18) mg/dl BUN (7-18) mg/dl Creatinine (0.6-1.4) mg/dl POC Creatinine 1.3 (0.6-1.3) mg/dl Est Cr Clr Drug Dosing ml/min Est GFR ( Amer) ml/min Est GFR (Non-Af Amer) ml/min BUN/Creatinine Ratio (10-20) Glucose (70-99) mg/dl POC Glucose (other) 110 H (70-99) mg/dl Calcium (8.5-10.1) mg/dl POC Ioniz Calcium [place] 1.01 L (1.12-1.32) mmol/l Magnesium 2.2 (1.8-2.4) mg/dl Total Bilirubin (0.2-1) mg/dl AST (15-37) U/L ALT (12-78) U/L Alkaline Phosphatase (45-117) U/L Troponin I (0-0.045) ng/ml Total Protein (6.4-8.2) gm/dl Albumin (3.4-5.0) gm/dl Globulin (2.5-4.0) gm/dl Albumin/Globulin Ratio (0.9-2) Lipase (73-393) U/L Urine Color Urine Appearance (Clear) Urine pH (4.5-7.5) Ur Specific [place] (1.000-1.030) Urine Protein (Negative) Urine Glucose (UA) (Negative) Urine Ketones (Negative) Urine Blood (Negative) Urine Nitrite (Negative) Urine Bilirubin (Negative) Urine Urobilinogen (Negative) Ur Leukocyte Esterase (Negative) Ethyl Alcohol mg/dL 305.0 H (0-3) mg/dl COVID-19 Eval Order 04/13/21 04/13/21 Range/Units 16:34 16:51 WBC (4.8-10.8) K/uL RBC (4.7-6.1) M/uL Hgb (14.0-18.0) g/dL POC Hgb (14.0-18.0) g/dl Hct (42-52) % POC Hct (42-52) % MCV (80-100) fL MCH (25-34) pg MCHC (32-36) g/dL RDW Std Deviation (36.4-46.3) fL RDW Coeff of Dud[place] (11.5-14.5) % Plt Count (130-400) K/uL MPV (7.4-10.4) fL Immature Gran % (Auto) % Neut % (Auto) % Lymph % (Auto) % [place] % (Auto) % Eos % (Auto) % Baso % (Auto) % Neut # (Auto) (1.4-6.5) K/uL Lymph # (Auto) (1.2-3.4) K/uL [place] # (Auto) (0.11-0.59) K/uL Eos # (Auto) (0-0.5) K/uL Baso # (Auto) (0-0.2) K/uL Immature Gran # (Auto) (0.00-0.02) K/uL PT (9.0-12.0) Seconds INR (0.9-1.1) APTT (21.0-31.0) Seconds PTT Ratio POC Sodium (135-144) mmol/L Sodium (136-145) mmol/L POC Potassium (3.3-5.0) mmol/L Potassium (3.5-5.1) mmol/L POC Chloride (101-112) mmol/L Chloride (98-107) mmol/L Carbon Dioxide (21-32) mmol/L POC Total CO2 (24-31) mmol/L Anion Gap (3-11) POC Anion Gap (16-25) mmol/L POC BUN (7-18) mg/dl BUN (7-18) mg/dl Creatinine (0.6-1.4) mg/dl POC Creatinine (0.6-1.3) mg/dl Est Cr Clr Drug Dosing ml/min Est GFR ( Amer) ml/min Est GFR (Non-Af Amer) ml/min BUN/Creatinine Ratio (10-20) Glucose (70-99) mg/dl POC Glucose (other) (70-99) mg/dl Calcium (8.5-10.1) mg/dl POC Ioniz Calcium [place] (1.12-1.32) mmol/l Magnesium (1.8-2.4) mg/dl Total Bilirubin (0.2-1) mg/dl AST (15-37) U/L ALT (12-78) U/L Alkaline Phosphatase (45-117) U/L Troponin I (0-0.045) ng/ml Total Protein (6.4-8.2) gm/dl Albumin (3.4-5.0) gm/dl Globulin (2.5-4.0) gm/dl Albumin/Globulin Ratio (0.9-2) Lipase (73-393) U/L Urine Color Yellow Urine Appearance Clear (Clear) Urine pH 5.5 (4.5-7.5) Ur Specific [place] > 1.045 H (1.000-1.030) Urine Protein Negative (Negative) Urine Glucose (UA) Negative (Negative) Urine Ketones Negative (Negative) Urine Blood Negative (Negative) Urine Nitrite Negative (Negative) Urine Bilirubin Negative (Negative) Urine Urobilinogen Negative (Negative) Ur Leukocyte Esterase Negative (Negative) Ethyl Alcohol mg/dL (0-3) mg/dl COVID-19 Eval Order Covid19 at [facility] 04/13/21 14:03 Sodium 139 Potassium 3.7 Chloride 105 Carbon Dioxide 27 BUN 6 L Creatinine 1.05 Glucose 108 H Calcium 9.1 Cardiac Enzymes 04/13/21 Range/Units 14:03 Troponin I < 0.015 (0-0.045) ng/ml Liver Function 04/13/21 Range/Units 14:03 Total Bilirubin 0.5 (0.2-1) mg/dl AST 69 H (15-37) U/L ALT 60 (12-78) U/L Alkaline Phosphatase 97 (45-117) U/L Albumin 4.1 (3.4-5.0) gm/dl Urine 04/13/21 Range/Units 16:51 Urine Color Yellow Urine Appearance Clear (Clear) Urine pH 5.5 (4.5-7.5) Ur Specific [place] > 1.045 H (1.000-1.030) Urine Protein Negative (Negative) Urine Glucose (UA) Negative (Negative) Code Status & VTE Plan VTE Prophylaxis Plan VTE Prophylaxis will be ordered: Yes
[2021-04-13 17:59] LABS: Amphetamines+Metham, Urine Neg (Neg); Barbiturates, Urine Neg (Neg); Benzodiazepine, Urine Neg (Neg); Cocaine, Urine Neg (Neg); MDMA (Ecstacy), Urine Neg (Neg); Methadone, Urine Neg (Neg); Opiate, Urine Neg (Neg); Phencyclidine, Urine Neg (Neg)
[2021-04-13 18:39] LABS: Thyroid Stimulating Hormone 2.05 uIu/ml (0.300-4.500)
[2021-04-13] MEDS ORDERED: POLYETHYLENE (MIRALAX) 17 GM PACK PO PRN (19:05)
[2021-04-13] MEDS ORDERED: LORazepam 2 MG/4 ML VIAL IV PRN (19:05)
[2021-04-13] MEDS ORDERED: FAMOTIDINE 20 MG in SYRINGE 3 ML IV PRN (19:05)
[2021-04-13] MEDS ORDERED: MoRPHine SULFATE 2 MG/ML CARP IV PRN (19:05)
[2021-04-13] MEDS ORDERED: NITROGLYCERIN SL 0.4 MG/TAB TAB SL PRN (19:05)
[2021-04-13] MEDS ORDERED: ATIVAN IV ALCOHOL WITHDRAWL IV PRN (19:05)
[2021-04-13] MEDS ORDERED: LORazepam 3 MG/6 ML VIAL IV PRN (19:05)
[2021-04-13] MEDS ORDERED: ACETAMINOPHEN 325 MG TAB PO PRN (19:05)
[2021-04-13] MEDS: SODIUM CHLORIDE 0.9% 1000ML 1,000 ML IV SCH (19:39)
[2021-04-13] MEDS ORDERED: GABAPENTIN 600 MG TAB PO ONE (20:00)
[2021-04-13] MEDS: FOLIC ACID 1 MG in SYRINGE 9.8 ML IV SCH (20:30)
[2021-04-14 02:21] LABS: Albumin Level 3.3 gm/dl (3.4-5.0); BUN Creatinine Ratio 6.3 (10-20); Calcium 7.9 mg/dl (8.5-10.1); Creatinine Clr Calc Pharmacy 98.1 ml/min; Est GFR (African American) 100.8 ml/min; Magnesium 1.7 mg/dl (1.8-2.4); Potassium 3.5 mmol/L (3.5-5.1)
[2021-04-14 02:33] LABS: Bilirubin,Total 0.7 mg/dl (0.2-1); Globulin 3.3 gm/dl (2.5-4.0); Phosphorus 4.2 mg/dl (2.5-4.9); Total Protein 6.6 gm/dl (6.4-8.2)
[2021-04-14] MEDS: LORazepam 1 MG/2 ML VIAL IV PRN ×4 (03:45→14:22)
[2021-04-14] MEDS: SODIUM CHLORIDE 0.9% 1000ML 1,000 ML IV SCH (04:23)
[2021-04-14] MEDS ORDERED: POTASSIUM CHLORIDE CRTAB 20 MEQ TABCR PO STA (04:51)
[2021-04-14] MEDS ORDERED: ATENOLOL 25 MG TABLET PO STA (04:53)
[2021-04-14] MEDS ORDERED: POTASSIUM CHLORIDE 40 MEQ in SODIUM CHLORIDE 0.45 % 1,000 ML IV ONE (04:54)
--- NOTE | 2021-04-14 04:55 | Communication Note ---
Date of Service: April 14, 2021 Made aware by RN of frequent PVCs. Patient anxious as per RN. Serum K 3.5 Serum magnesium 1.7 AP Frequent PVCs in the setting of alcohol withdrawal Replace electrolytes Beta-marek 1 dose Will relay to AM provider.
[2021-04-14] MEDS: MAGNESIUM SULFATE / D5W 1 GM/100 ML BAG IV SCH ×2 (05:32→07:33)
[2021-04-14] MEDS: GABAPENTIN 600 MG TAB PO SCH ×3 (05:34→22:50)
[2021-04-14] MEDS: PANTOprazole 40 MG TAB PO SCH (06:55)
[2021-04-14] MEDS ORDERED: POTASSIUM CHLORIDE CRTAB 20 MEQ TABCR PO ONE (07:00)
[2021-04-14] MEDS: FOLIC ACID 1 MG in SYRINGE 9.8 ML IV SCH (07:41)
--- NOTE | 2021-04-14 08:34 | Hospitalist Progress Note ---
Date of Service April 14, 2021 Assessment & Plan (1) Alcohol withdrawal: Plan: Tachycardia and hypertension improved overnight. He is currently hemodynamically stable. Anxiety and tremulousness also has improved. Last drink was yesterday morning, therefore, today still could be a difficult day however he is doing well on gabapentin punctuated with Ativan. He notably feels the Ativan wear off, therefore, would recommend he stay through today and see how things go. Transfer off telemetry to [facility] floor. Continue daily thiamine and folate and switch to oral. Serial troponin enzymes overnight are negative. Repeat EKG this morning reveals normal sinus rhythm with a rate of 79, normal QT C, and a resolution of T wave inversions no longer evident in inferior leads. Nonspecific T wave abnormality also no longer evident in anterolateral leads. He is remained chest pain-free and without symptoms of ACS. Would not pursue further investigation of cardiac etiology at this time given ongoing alcohol withdrawal. (2) Alcohol abuse: Plan: Strict alcohol cessation strongly advised. (3) GERD (gastroesophageal reflux disease): Plan: Hold omeprazole which is nonformulary and give daily Protonix with as needed Pepcid as needed. (4) DVT prophylaxis: Plan: SCD/ambulation Full code Disposition-transfer to [facility], okay to discharge home when reliably off IV Ativan and feeling less anxious and tremulous. Possibly next 1 to 2 days. Sweta Acuna DO [facility] hospitalist Admission and Anticipated Discharge Date Admission Date: April 13, 2021 Subjective 40-year-old man with a history of heavy alcohol use presented with alcohol withdrawal symptoms. Reports feeling improved overnight with still some anxiety. He feels less shaky but does feel his intravenous Ativan from earlier this morning is wearing off. Magnesium replaced overnight Denies any chest pain, shortness of breath or other issues. Review of Systems Review of Systems: At least ten systems were reviewed and negative except as indicated in HPI above. Physical Exam Physical Exam: CONSTITUTIONAL: WNWD, vitals as above, generally NAD EYES: normal conjunctivae, no scleral icterus ENT: external ear and nose normal, MMM NECK: trachea midline RESPIRATORY: clear to auscultation bilaterally, no crackles, rales or wheezes, normal respiratory effort CARDIOVASCULAR: tachy rate and rhythm, S1 and 2 heard without murmurs, gallops or rubs, no JVD, no peripheral edema CHEST: inspection of chest was normal GASTROINTESTINAL: soft, nontender, no hepatomegaly, no guarding, nondistended. MUSCULOSKELETAL: strength 5/5 throughout, head is normocephalic and atraumatic SKIN: warm and dry NEUROLOGIC: No facial palsy, no dysarthria. CN 2-12 grossly intact, no sensory deficit, normal cognition, normal speech, no tremor PSYCHIATRIC: alert cooperative and oriented to person, place and time. Not appearing anxious today. Results & Data Results & Data ([facility]) Vital Signs (Past 12 Hours) Vital Signs Temp Pulse Pulse Pulse Resp BP Pulse Ox 04/14/21 07:52 75 04/14/21 07:51 36.8 C 88 18 125/63 98 04/14/21 07:00 04/14/21 05:27 36.6 C 91 H 18 101/60 99 04/14/21 03:35 36.5 C 104 H 20 148/93 H 95 04/14/21 01:54 36.6 C 108 H 20 148/94 H 95 04/13/21 22:50 36.8 C 112 H 21 127/82 95 04/13/21 22:19 93 H Pulse Ox 04/14/21 07:52 04/14/21 07:51 04/14/21 07:00 95 04/14/21 05:27 04/14/21 03:35 04/14/21 01:54 04/13/21 22:50 04/13/21 22:19 Laboratory Results Short CBC 04/13/21 Range/Units 14:03 WBC 6.28 (4.8-10.8) K/uL Hgb 16.2 (14.0-18.0) g/dL Hct 47.5 (42-52) % Plt Count 281 (130-400) K/uL BMP 04/13/21 04/14/21 14:03 01:46 Sodium 139 141 Potassium 3.7 3.5 Chloride 105 106 Carbon Dioxide 27 28 BUN 6 L 7 Creatinine 1.05 1.07 Glucose 108 H 87 Calcium 9.1 7.9 L Cardiac Enzymes 04/13/21 04/13/21 04/14/21 Range/Units 14:03 20:50 01:46 Troponin I < 0.015 < 0.015 < 0.015 (0-0.045) ng/ml Liver Function 04/13/21 04/14/21 Range/Units 14:03 01:46 Total Bilirubin 0.5 0.7 (0.2-1) mg/dl AST 69 H 56 H (15-37) U/L ALT 60 48 (12-78) U/L Alkaline Phosphatase 97 72 (45-117) U/L Albumin 4.1 3.3 L (3.4-5.0) gm/dl Urine 04/13/21 Range/Units 16:51 Urine Color Yellow Urine Appearance Clear (Clear) Urine pH 5.5 (4.5-7.5) Ur Specific [place] > 1.045 H (1.000-1.030) Urine Protein Negative (Negative) Urine Glucose (UA) Negative (Negative) Medications Administered Current Inpatient Medications Acetaminophen (Acetaminophen 325 Mg Tab) 650 mg PO Q4H PRN PRN Reason: Pain or Fever Stop: 05/13/21 19:04 Gabapentin (Gabapentin 600 Mg Tab) 600 mg PO Q6H TROY Stop: 04/14/21 12:01 Last Admin: 04/14/21 05:34 Dose: 600 mg Documented by: Gabapentin (Gabapentin 600 Mg Tab) 600 mg PO Q8H TROY Stop: 04/15/21 14:01 Gabapentin (Gabapentin 600 Mg Tab) 600 mg PO Q12H TROY Stop: 04/16/21 12:01 Gabapentin (Gabapentin 600 Mg Tab) 600 mg PO Q24H TROY Stop: 04/17/21 12:01 Thiamine HCl 100 mg/ Syringe 10 mls @ 2 mls/min IV QAM [facility] Stop: 05/14/21 08:59 Last Admin: 04/14/21 07:41 Dose: 2 mls/min Documented by: Folic Acid 1 mg/ Syringe 10 mls @ 5 mls/min IV QAM [facility] Stop: 05/13/21 19:59 Last Admin: 04/14/21 07:41 Dose: 5 mls/min Documented by: Lorazepam (Ativan) 3 mg in 6 mls @ 4 mls/min IV ONCE PRN; Protocol PRN Reason: EtOH Withdrawl AWSS Score >=10 Stop: 05/13/21 19:04 Famotidine 20 mg/ Syringe 5 mls @ 2.5 mls/min IV Q12H PRN PRN Reason: acid reflux Stop: 05/13/21 19:04 Lorazepam (Ativan) 1 mg in 2 mls @ 2 mls/min IV UD PRN; Protocol PRN Reason: EtOH Withdrawl AWSS Score 6,7 Stop: 05/13/21 19:04 Last Admin: 04/14/21 07:42 Dose: 2 mls/min Documented by: Lorazepam (Ativan) 2 mg in 4 mls @ 4 mls/min IV UD PRN; Protocol PRN Reason: EtOH Withdrawl AWSS Score 8,9 Stop: 05/13/21 19:04 Magnesium Sulfate/Dextrose (Magnesium Sulfate / D5w) 1 gm in 100 mls @ 50 mls/hr IV Q2H TROY Stop: 04/14/21 08:50 Last Admin: 04/14/21 07:33 Dose: 50 mls/hr Documented by: Potassium Chloride 40 meq/ (Sodium Chloride) 1,020 mls @ 100 mls/hr IV .[id number] Stop: 04/14/21 15:05 Last Admin: 04/14/21 05:32 Dose: 100 mls/hr Documented by: Morphine Sulfate (Morphine Sulfate 2 Mg/Ml Carp) 2 mg IV Q30M PRN PRN Reason: Chest Pain Stop: 04/27/21 19:04 Nitroglycerin (Nitroglycerin Sl 0.4 Mg/Tab Tab) 0.4 mg SL UD PRN PRN Reason: Chest Pain Stop: 05/13/21 19:04 Pantoprazole Sodium (Pantoprazole 40 Mg Tab) 40 mg PO DAILYBB TROY Stop: 05/14/21 06:29 Last Admin: 04/14/21 06:55 Dose: 40 mg Documented by: Polyethylene Glycol (Polyethylene (Miralax) 17 Gm Pack) 17 gm PO DAILY PRN PRN Reason: Constipation Stop: 05/13/21 19:04
[2021-04-14] MEDS ORDERED: THIAMINE HCL 100 MG in SYRINGE 9 ML IV SCH (09:00)
--- NOTE | 2021-04-14 09:27 | Electrocardiogram Report ---
Test Reason : Blood Pressure : / mmHG Vent. Rate : 105 BPM Atrial Rate : 105 BPM P-R Int : 116 ms QRS Dur : 082 ms QT Int : 348 ms P-R-T Axes : 066 113 -32 degrees QTc Int : 459 ms Sinus tachycardia Left posterior fascicular block ST and T wave abnormality consider inferolateral ischemia Abnormal ECG When compared with ECG of 29-JUN-2020 14:26, Premature ventricular complexes are no longer Present QRS axis Shifted right T wave inversion now evident in Inferior leads Nonspecific T wave abnormality now evident in Anterolateral leads Confirmed by Porfirio Summers ([id number]) on 04/14/2021 9:26:43 AM Referred By: REFERRED SELF Confirmed By:Porfirio Summers
--- NOTE | 2021-04-14 10:03 | Electrocardiogram Report ---
Test Reason : Blood Pressure : / mmHG Vent. Rate : 079 BPM Atrial Rate : 079 BPM P-R Int : 148 ms QRS Dur : 082 ms QT Int : 418 ms P-R-T Axes : 052 003 019 degrees QTc Int : 479 ms Normal sinus rhythm Normal ECG When compared with ECG of 13-APR-2021 13:55, (unconfirmed) QRS axis Shifted left The ST/T changes have resolved Confirmed by Porfirio Summers ([id number]) on 04/14/2021 10:03:44 AM Referred By: REFERRED SELF Confirmed By:Porfirio Summers
[2021-04-15] MEDS: PANTOprazole 40 MG TAB PO SCH (06:04)
[2021-04-15] MEDS: GABAPENTIN 600 MG TAB PO SCH ×2 (06:04→14:00)
[2021-04-15 07:23] LABS: Estimated Average Glucose 114 mg/dl; Hemoglobin A1C 5.6 % (4.5-5.6)
[2021-04-15 08:21] LABS: BUN Creatinine Ratio 7.6 (10-20); Calcium 9.1 mg/dl (8.5-10.1); Creatinine Clr Calc Pharmacy 93.8 ml/min; Est GFR (African American) 94.4 ml/min; Est GFR (Non-African American) 81.4 ml/min; Magnesium 2.2 mg/dl (1.8-2.4); Phosphorus 3.8 mg/dl (2.5-4.9); Potassium 3.7 mmol/L (3.5-5.1)
[2021-04-15] MEDS ORDERED: THIAMINE HCL 100 MG TAB PO SCH (09:00)
[2021-04-15] MEDS ORDERED: FOLIC ACID 1 MG TAB PO SCH (09:00)
--- NOTE | 2021-04-15 12:32 | Discharge Summary ---
Date of Service April 15, 2021 Admission HPI Per Admitting Provider The patient is a 40-year-old heavy alcohol user who presents after a long weekend of drinking continuously. He reports feeling uncertain with associated chest discomfort, questionable nausea, questionable palpitations, and an overall feeling of being unwell. He feels as though he is withdrawing. He reports daily drinking of approximately 3 hard liquor drinks and recently was drinking continuously for what seems to be approximately 48 hours. He cannot quantify the amount of alcohol he took in. I asked him if he drank until he blacked out and he said "no I hung in there." He denies feeling dehydrated, but is not been eating because he feels he cannot tolerate food. He denies any vomiting and has not vomited blood. He denies a history of heart problems or family history of sudden cardiac or other early age heart issues in his family members. He denies tobacco use or other illicit drug use. He reports feeling shaky. Admission Exam Per Admitting Provider CONSTITUTIONAL: WNWD, vitals as above, generally ill-appearing EYES: normal conjunctivae, no scleral icterus ENT: external ear and nose normal, MMM NECK: trachea midline RESPIRATORY: clear to auscultation bilaterally, no crackles, rales or wheezes, normal respiratory effort CARDIOVASCULAR: tachy rate and rhythm, S1 and 2 heard without murmurs, gallops or rubs, no JVD, no peripheral edema CHEST: inspection of chest was normal GASTROINTESTINAL: soft, nontender, no hepatomegaly, no guarding, nondistended. MUSCULOSKELETAL: strength 5/5 throughout, head is normocephalic and atraumatic SKIN: warm and dry NEUROLOGIC: No facial palsy, no dysarthria. CN 2-12 grossly intact, no sensory deficit, normal cognition, normal speech, slightly tremulous PSYCHIATRIC: alert cooperative and oriented to person, place and time. Anxious-appearing. Principal Diagnosis Alcohol withdrawl Discharge Exam General: A&Ox3 HENT: NCAT, MMM, EOMI Eyes: PERRLA Neck: Supple, normal range of motion CVS: normal rate and rhythm Resp: b/l good breath sounds Abdomen: Soft, ND/NT, +BS Extremities: No c/c/e Neuro: face symmetric, strength grossly equal, no focal deficit Skin: warm and dry, no rashes/lesions/errythema MSK: normal ROM, no joint swelling/erythema Discharge Data Allergies Allergy/AdvReac Type Severity Reaction Status Date / Time No Known Allergies Allergy Unverified 04/13/21 14:44 Consultations 04/13/21 16:52 ED Decision to Admit Stat Ordered Studies 04/13/21 14:43 CT abd pelvis IV con only Stat CT angio chest PE protocol Stat Hospital Course (1) Alcohol withdrawal: Patient was started on CIWA protocol. On the day of discharge patient was awake, alert and oriented x3. His tremors are improved. Patient denies any chest pain or shortness of breath. Dynamically he was doing fairly well. Patient agreed for outpatient rehab referrals. Patient was discharged in stable condition. Serial troponin enzymes were negative. Repeat EKG revealed normal sinus rhythm with a rate of 79, normal QT C, and a resolution of T wave inversions no longer evident in inferior leads. Nonspecific T wave abnormality also no longer evident in anterolateral leads. Transthoracic echo was obtained which did not reveal any concerning findings. Anxiety Patient was started on BuSpar 5 mg twice daily. He will need to follow-up with his PCP for further management. (2) Alcohol abuse: Strict alcohol cessation strongly advised. (3) GERD (gastroesophageal reflux disease): Continue with protonix. Total Time Total Time Spent Total Time Spent (In Minutes): 35 Discharge Plan Discharge Items Patient Disposition: Home - Self-Care Reason For Visit: ALCOHOL WITHDRAWAL,CHEST PAIN Discharge Diagnosis: Alcohol withdrawl Condition on Discharge: Good Activity: Resume your previous activity Non-emergency contact: Primary Care Provider Call non-emergency contact if: your symptoms worsen Follow-up/Referrals: Jason Marvin MD [Primary Care Provider] - 04/22/21 11:20 am (Date & Time 04/22/2021 11:20 AM Provider Jason Marvin MD Department Family Medicine [facility] ) Diet: Regular Addtl Attending Provider Instructions: Start taking Buspar 5 mg twice daily for anxiety. Follow-up with your primary care physician for further management. Pending Studies at Discharge: No Stand-Alone Forms: [employer], Work/School Release, Smoking Cessation Medications and DC Order Prescriptions: New thiamine HCl (vitamin B1) [Vitamin B-1] 100 mg Tablet 100 mg PO QAM Qty: 75 RF: 0 folic acid 1 mg Tablet 1 mg PO QAM Qty: 15 RF: 0 buspirone 5 mg tablet 5 mg PO BID Qty: 30 RF: 0 Continued omeprazole 20 mg Capsule,Delayed Release(Dr/Ec) 20 mg PO QAM RF: 0 One-A-Day Men's Multivitamin 400-20-300 mcg Tablet 1 tab PO QAM RF: 0 Discharge Orders: Discharge Order (Routine); Ordered 04/15/21 Ordered By: Aiden Ridley/Other Patient Handouts: Alcoholism Resources, Alcohol Withdrawal: What to Expect, Addiction Ask These Questions, Addiction: Getting Help, Addiction: Your Treatment Options, Recovering from Addiction Admission Data Admit Date/Time: 04/14/21 15:02 Attending Provider: Aiden Castañeda Admit Provider: Sweta Acuna Primary Care Provider: Jason Marvin Other Providers: Sweta Acuna Other Interventions: Discharge Summary Assessment (RN) Last Done: 04/15/21 12:28
--- NOTE | 2021-04-15 15:46 | Electrocardiogram Report ---
Test Reason : Blood Pressure : / mmHG Vent. Rate : 071 BPM Atrial Rate : 071 BPM P-R Int : 148 ms QRS Dur : 080 ms QT Int : 424 ms P-R-T Axes : 070 078 032 degrees QTc Int : 460 ms Normal sinus rhythm Normal ECG When compared with ECG of 14-APR-2021 06:53, Questionable change in QRS axis Confirmed by Kash Calvo ([id number]) on 04/15/2021 3:45:59 PM Referred By: REFERRED SELF Confirmed By:Kash Calvo
[2021-04-16] MEDS ORDERED: GABAPENTIN 600 MG TAB PO SCH
[2021-04-17] MEDS ORDERED: GABAPENTIN 600 MG TAB PO SCH (12:00)
== END 2021-04-15 15:58 | disposition home or self-care (01) ==
LOC: ED 13:23 → 2S 13:23 → 3N 04-14 10:15 → SUATTDRO 04-14 15:02

== ENCOUNTER 2022-07-18 06:36 | Observation (INO) ==
--- NOTE | 2022-07-02 10:24 | PAT Medication Instructions ---
Medication Instructions Date of Service July 02, 2022 Home Medications omeprazole 20 mg capsule,delayed release 20 mg PO QAM One-A-Day Men's Multivitamin 1 tab PO QAM citalopram 20 mg tablet 20 mg PO QAM trazodone 100 mg tablet 100 mg PO HS DO NOT take the morning of surgery One-A-Day Men's Multivitamin 1 tab PO QAM Take morning of surgery With a small sip of water, OTHERWISE NOTHING TO EAT OR DRINK AFTER MIDNIGHT: omeprazole 20 mg capsule,delayed release 20 mg PO QAM citalopram 20 mg tablet 20 mg PO QAM Take evening before surgery trazodone 100 mg tablet 100 mg PO HS Other Notes If you have any questions please call us at [phone] or [phone] or [phone] or [phone]
--- NOTE | 2022-07-03 15:27 | Anesthesiology Consultation ---
Date of Service July 03, 2022 Assessment & Plan (1) Encounter for pre-operative examination: - Outpatient joint assessment: Patient is currently scheduled for inpatient pathway. If re-evaluated pending system levels during current pandemic/surgeon requests outpatient pathway, patient is acceptable candidate for outpatient joint program from anesthesia standpoint pending surgeon's office assessment of pt motivation/support/completion of same day joint program preop requirements. Chart Review Chart Review: Acceptable Risk for Surgery and Patient seen in Pre Admission Testing Teaching & Discussion Pre-Anesthesia Teaching/Discussion Notes: Instructed NPO after midnight before surgery, except medications with 15 cc of water. Medication instructions provided according to the PAT guidelines. History Surgery Operation Date: 07/18/22 07:00 Proposed Procedures p Left Total Hip Arthroplasty - Bobby Sun MD Height/Weight Height: 5 ft 6 in Weight: 92.986 kg Allergies Allergy/AdvReac Type Severity Reaction Status Date / Time No Known Allergies Allergy Unverified 07/02/22 09:12 Medications Home Medications Medication Instructions Recorded Confirmed Last Taken omeprazole 20 mg capsule,delayed 20 mg PO QAM 06/29/20 07/02/22 04/13/21 release fgrprkbk-wuyuopcj-gohpm acid 400 1 tab PO QAM 04/13/21 07/02/22 04/12/21 mcg-vit K 20 mcg-lycop 300 mcg tablet (One-A-Day Men's Multivitamin) citalopram 20 mg tablet 20 mg PO QAM 07/02/22 07/02/22 Unknown trazodone 100 mg tablet 100 mg PO HS 07/02/22 07/02/22 Unknown Past Medical History Medical History (Updated 07/03/22 @ 15:39 by Destinee Mars PA-C) Anxiety 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 Hx of chest pain 2020, found to be from anxiety, resolved Patient denies h/o stroke, seizures, heart attack, heart failure, DM, HTN, blood clots or blood transfusions. Exercise / Class Metabolic Activity II 4-5 Yardwork/Stairs/Walk up hill (denies CP or SOB with 1 FOS) Past Family History Family History Other Family history non-contributory Past Surgical History Surgical History History of hip surgery core decompression lt hip Past Anesthesia History No Hx of Anesthesia Complications and No Family Hx of Anesthesia Complications History of PONV No Hx of PONV and No Hx of Motion Sickness Social History Smoking Status: Never smoker Do You Dip or Chew Tobacco: No Hx Alcohol Use: Yes Alcohol type: beer alcohol intake frequency: other (usually a few times a month, denies any in past 3 weeks) Alcohol Intake Frequency Comment: occasionally Hx Substance Use: No substance use type: does not use Review of Systems Snoring, denies witnessed apneas. Patient denies chest pain, shortness of breath, dyspnea on exertion, fever, chills, cough, wheezing, or palpitations. Physical Exam Vital Signs Vitals BP 136/89 P 75 TEMP 98.6 SP02 98% on RA RESP 18 Physical Full cervical extension range of motion without pain TMD 3.5 finger breadths Mallampati Score 3 Dentition: intact, denies Lungs: normal respiratory effort. Clear throughout to auscultation, no adventitious breath sounds Cardiac: regular rate and rhythm, no murmurs noted Carotid arteries: negative bruit bilat Lab Results Anesthesia Preop Results Results Anesthesia Widget: WBC 7.77 K/ul (4.8-10.8) 07/03/22 Hgb 13.2 g/dl (14.0-18.0) L 07/03/22 Hct 39.4 % (40.1-51.0) L 07/03/22 Plt 388 K/uL (130-400) 07/03/22 Na 139 mmol/L (136-145) 07/03/22 K 3.9 mmol/L (3.5-5.1) 07/03/22 Cl 103 mmol/L (98-107) 07/03/22 CO2 28 mmol/L (21-32) 07/03/22 BUN 12 mg/dl (6-23) 07/03/22 Creat 1.11 mg/dl (0.6-1.4) 07/03/22 Glucose Level 88 mg/dl (70-99(Fasting)) 07/03/22 PT 10.6 Seconds (9.0-12.0) 07/03/22 PTT 26.1 Seconds (21.0-31.0) 07/03/22 INR 1.0 (0.9-1.1) 07/03/22 Blood Type B Positive 07/03/22 Antibody Screen NEGATIVE 07/03/22 Testing Electrocardiogram Date: 07/03/22 NSR, rate 60 bpm Chest X-Ray Date: 07/03/22 Cardiomediastinal and hilar silhouettes are within normal limits. No pneumothorax, pleural effusion, airspace consolidation or overt pulmonary edema. Bones appear grossly intact. IMPRESSION: No acute process. Echocardiogram Date: 04/14/21 EF 55-60% Normal LV wall motion No significant valvular abnormalities COVID-19 Risk Screen Screening Information COVID-19 Screen Date: 07/03/22 Exposure 21 Days Family/Household +COVID Last 21 Days: No Exposure 10 Days Any COVID Exposure Last 10 Days: No Symptoms Last 10 Days Experienced COVID Sx Last 10 Days: No + COVID 0-90 Days COVID + in Last 0-90 Days: No
--- NOTE | 2022-07-11 21:23 | History and Physical Report ---
DATE OF ADMISSION: 07/18/2022 CHIEF COMPLAINT: Persistent progressive left hip pain. 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 He has a several-year history of g radually progressive, increasing left hip pain and discomfort. He was diagnosed with avascular necro sis and underwent a core decompression and some bone marrow application done by Dr. Agrawal back on of this year. It really did not help him at all. His symptoms have continued to progress. He has developed increased pain and discomfort. He limps pretty much all the time. He describes jerrell in and thigh pain. Limps more as the day goes on. Would like to have his hip fixed. Of note, the patient does have a significant alcohol history. Medical record supports pretty signifi cant extensive use, although the patient reports more modest use. No right hip pain. PAST MEDICAL HISTORY: Significant for avascular necrosis, left hip. PAST SURGICAL HISTORY: Includes left core decompression done by Dr. Agrawal on 01/15/2022 done at [facility]. ALLERGIES: None. CURRENT MEDICATIONS: 1. Citalopram. 2. Trazodone. 3. Omeprazole. SOCIAL HISTORY: A 42-year-old male. He is . 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 One drink per day, he says. Does not smoke. FAMILY HISTORY: Noncontributory. REVIEW OF SYSTEMS: Negative for diabetes. No chest pain, shortness of breath. No history of DVT or PE. No known bleeding disorders. PHYSICAL EXAMINATION: GENERAL: Shows a pleasant middle-aged male. Looks to be in good health. HEENT: Benign. NECK: Supple. No lymphadenopathy. LUNGS: Clear to auscultation. HEART: Regular rate and rhythm. ABDOMEN: Soft, nontender, nondistended. EXTREMITIES: Grossly neurovascularly intact except as follows.: Examination of the left hip reveale d patient walks with a markedly antalgic gait. He limps on the left side. Leg lengths are pretty eq ual. He has limited internal rotation to about neutral to 5 degrees. Does recreate pain. Negative straight leg raise. No knee effusion. X-RAYS: X-rays of the left hip from today were reviewed. It shows avascular necrosis of the femoral head with collapse. It shows evidence of the previous core decompression. ASSESSMENT: A 42-year-old male with a left hip AVN. He failed core decompression. He has got progr essive collapse of his hips. He would like to have his hip fixed. PLAN: We will take him to the operating room and do left total hip replacement. The risks and benef its of this procedure were explained to the patient to include, but not limited to DVT, PE, , in fection, neurological injury, vascular injury, bleeding problem, pain, limited range of motion, stiff ness, failure to relieve symptoms, incomplete relief of symptoms, etc. We did talk about his young a ge and that this may need to be redone or revised at some point in the future if he wears it out. He is planning on staying overnight and discharge on postoperative day 1 if he does okay in therapy. He is going to go home with home health. He will follow back up with us 2 weeks postop. Job ID: [id number]
[~2022-07-18 06:36] MED LIST: ACETAMINOPHEN 500 MG TAB PO SCH; CeleBREX 200 MG CAP PO SCH; FAMOTIDINE 20 MG TAB PO SCH; LR 500ML BOLUS, THEN 15ML/HR IV SCH; LR 60ML/HR IV SCH; METOCLOPRAMIDE HCL 10 MG TABLET PO SCH; Scopolamine 1 MG TDSY TD SCH; TRANEXAMIC ACID 1,000 MG **IV Pre-op IV SCH; ceFAZolin 2000MG 2,000 MG/15 ML SYR IV SCH
--- NOTE | 2022-07-18 06:56 | History & Physical Bridge Note ---
Date of Service July 18, 2022 History & Physical Bridge Note I have examined the patient, reviewed the History & Physical and in the interval since the performance of the History & Physical I have noted the following changes of clinical significance: no changes noted
[2022-07-18] MEDS ORDERED: BUPIVACAINE 0.5 % 5 MG/1 ML PF 10ML VIAL ONE (07:10)
[2022-07-18] MEDS ORDERED: fentaNYL citrate 100 MCG/2 ML VIAL ONE (07:42)
[2022-07-18] MEDS ORDERED: MIDAZOLAM HCL 1 MG/ML 2ML VIAL ONE (07:42)
[2022-07-18] MEDS ORDERED: ONDANSETRON INJ 2 MG/ML 2 ML VIAL ONE (07:45)
[2022-07-18] MEDS ORDERED: PROPOFOL IV EMULSION 10 MG/ML 20 ML VIAL IV ONE ×2 (07:45→10:47)
[2022-07-18] MEDS ORDERED: MoRPHine SULFATE PF 1 MG/ML 10 ML AMP/VIAL ONE (08:26)
[2022-07-18] MEDS ORDERED: BUPIVACAINE 0.5 % 5 MG/1 ML MPF 30ML VIAL ONE (09:09)
[2022-07-18] MEDS ORDERED: EPINEPHrine INJ 1 MG/ML AMP ONE (09:09)
[2022-07-18] MEDS ORDERED: ePHEDrine sulfate 50 MG/ML AMP ONE (09:39)
--- NOTE | 2022-07-18 11:08 | Operative Report ---
PG Post Operative Report Pre & Post Diagnosis Operation Date: 07/18/22 08:50 Pre-Op Diagnosis: avascular necrosis of bone, left hip; failed core decompression with progressive collapse of left hip Post-Op Diagnosis: avascular necrosis of bone, left hip; failed core decompression with progressive collapse of left hip I identified the patient and participated in the time-out.: Yes Procedure Operation Date: 07/18/22 08:50 Actual Procedures p Left Total Hip Arthroplasty(Left) - Bobby Sun MD Surgeon Bobby Sun MD Mortgage Operations Manager Marquez Galeas PA-C Estimated Blood Loss 200 Findings Consistent with Post-Op Diagnosis Operative findings revealed collapse of the femoral head. Moderate-sized joint effusion. 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 He did underwent a core decompression with a bone marrow placement 6 months ago which failed. Hip continue to collapse. He is having disabling pain. Electricity with surgical treatment. Description of Procedure Operative implants consist of: 1 Biomet G7 size 52 mm acetabular shell. 2. [place] hole scouring train operator. Three 6.5 cancellous acetabular screws were 35 mm length and 1 of 30 mm length. 4. Highly cross-linked polyethylene liner with a 52 mm outer diam 36 mm diameter. 5. DePuy Karaya size 11 KLA femoral stem. 6. +5/36 mm ceramic articular ball. Patient was taken the operating, identified, placed on the operating table supine position protectors were properly padded and identified by anesthesia team. Spinal anesthetic was employed in the holding area. Ramirez catheter was placed in sterile fashion. Patient then placed in the right lateral decubitus position and an axillary Roll was placed. Stulberg hip positioner used for positioning. Left hip and leg were then prepped draped in usual sterile fashion. A posterior lateral posterior left hip was then performed through a curvilinear incision centered over the greater trochanter. Sharp dissection Through subcutaneous tissue down below the IT band gluteal fascia. The IT band gluteal fascia incised longitudinally in line with skin incision. The underlying greater bursa was excised. The piriformis and external rotators were tagged and taken off the posterior aspect hip joint capsule. The posterior hip joint capsule was then released the posterior aspect hip. Great care was taken throughout this procedure protect the sciatic nerve at all times. Hip was internally rotated and dislocated. Femoral neck osteotomy cut was made with a Final Cut about 12 mm above the lesser trochanter. Femoral head was removed and sent for pathology but femur was retracted anteriorly. The acetabular labrum was excised. The pulmonary fat was excised. Sequential reaming the acetabular then performed begin with size 45 and progressing up to 51. I did ream a little bit with a 52 reamer. A 52 mm Biomet G7 acetabular shell was then placed about 40 degrees lateral opening and 20 degrees of anteversion. Was fixed with two 6.5 cancellous acetabular screws. Trial liner was placed. Attention drawn the femur. The proximal femur was entered with a [employer] cutter followed by canal finder. I broached beginning size 8 press up to 11. Got excellent fit 11. I then trialed the hip and the +5 articular ball seem to recreate it tension appropriately, leg lengths were equal. Hip was stable in full extension and external rotation and flexion to 9 degrees internal Tatian over [address] these implants. All trial implants were removed. [place] hole scouring train operator was placed but highly cross-linked polyethylene liner was placed. A size 11 KLA femoral stem was impacted in position. +5/36 mm ceramic articular ball was placed. It was located once again found to be stable. Attention drawn toward closing. Nupathe wounds irrigated cosigns pulsatile lavage solution. I did inject locally with 60 cc of half percent Marcaine with epinephrine. The posterior capsule and external rotators then repaired through drill holes in the posterior trochanter as a single layer with #2 Tycron suture. The IT band gluteal fascia then closed in 1 PDS suture running fashion the subcutaneous tissue then closed with 2 layers the deep layer #1 Vicryl suture subcutaneous tissues with 2-0 Dexon suture in a buried interrupted fashion skin was closed skin lisa. Legs then cleaned and dried a sterile dressing was Xeroform, 4 x 4's, ABD pad, foam tape was applied. Patient then transferred to the recovery in stable condition. Patient tolerated the procedure well and there were no complications. Marquez Galeas, my physician employment legal assistant, was present for the entire procedure. His assistance was required for proper patient positioning, prepping and draping, surgical exposure, retraction, perform the technical details of the operation, placing the implants, closure of the wound and placement of sterile bandage. I attest to the content of the Intraoperative Record and any orders documented therein. Any exceptions are noted below.
--- NOTE | 2022-07-18 11:26 | XRay Report ---
AP PELVIS, CROSSTABLE LATERAL LEFT HIP History: Left total hip arthroplasty. Degenerative arthritis. Postop. FINDINGS: The patient is status post a left total hip arthroplasty. The hardware is intact. No fractu re or dislocation. Skin lisa are in place. IMPRESSION: Left total hip arthroplasty. No evidence for hardware complication. ACT 112: Negative or not required by law. Electronically signed by: Randall Grant M.D. 07/18/2022 11:25 AM
[2022-07-18] MEDS ORDERED: ONDANSETRON INJ 2 MG/ML 2 ML VIAL IV PRN ×2 (11:54→12:22)
[2022-07-18] MEDS ORDERED: TAMSULOSIN HCL 0.4 MG CAP PO PRN (11:54)
[2022-07-18] MEDS ORDERED: traMADol HCL 50 MG TABLET PO PRN (11:54)
[2022-07-18] MEDS ORDERED: NALOXONE HCL 0.4 MG/1 ML VIAL/CARP IV PRN ×2 (11:54→12:22)
[2022-07-18] MEDS ORDERED: bisacodyL 10 MG SUPP PR PRN (11:54)
[2022-07-18] MEDS ORDERED: MAGNESIUM HYDROXIDE SUSP 30 ML UDC PO PRN (11:54)
[2022-07-18] MEDS ORDERED: ALUMINUM/MAGNESIUM SUSP 30 ML UDC PO PRN (11:54)
[2022-07-18] MEDS ORDERED: LIDOCAINE 2% MPF LOCAL 5 ML VIAL INFIL ONE (11:55)
[2022-07-18] MEDS ORDERED: HYDROmorphone INJ 0.5 MG/0.5 ML SYR IV PRN (12:22)
[2022-07-18] MEDS ORDERED: NALOXONE HCL 1 MG in SODIUM CHLORIDE 0.9% 1000ML 1,000 ML IV PRN (12:22)
[2022-07-18] MEDS ORDERED: LACTATED RINGER'S 500 ML IV PRN (12:22)
[2022-07-18] MEDS ORDERED: MoRPHine SULFATE PF 1 MG/ML 10 ML AMP/VIAL INT SPINAL ONE (12:22)
[2022-07-18] MEDS ORDERED: NALOXONE HCL 0.08 MG in SYRINGE 1.8 ML IV PRN (12:22)
[2022-07-18] MEDS ORDERED: diphenhydrAMINE 50 MG/ML VIAL IV PRN (12:22)
[2022-07-18] MEDS ORDERED: ePHEDrine sulfate 50 MG/ML AMP IV PRN (12:22)
[2022-07-18] MEDS ORDERED: NALBUPHINE HCL INJ 10 MG/ML AMP IV PRN (12:22)
--- NOTE | 2022-07-18 12:25 | Anesthesiology Progress Note ---
Date of Service July 18, 2022 Anesthesia Post Procedure Vital Signs Vital Signs: Temp Pulse Pulse Resp BP Pulse Ox O2 Del Method 07/18/22 12:00 36.3 C L 71 19 104/59 L 95 Room Air 07/18/22 11:20 96 H 23 106/73 100 Oxymask 07/18/22 11:45 36.3 C L 68 20 112/66 95 Room Air 07/18/22 11:30 74 12 107/67 99 Oxymask 07/18/22 11:10 77 23 123/62 100 Oxymask 07/18/22 10:59 36.6 C 95 H 14 100/58 L 98 Oxymask 07/18/22 07:24 36.7 C 86 20 106/76 97 Room Air O2 Flow Rate 07/18/22 12:00 07/18/22 11:20 4 07/18/22 11:45 07/18/22 11:30 3 07/18/22 11:10 5 07/18/22 10:59 5 07/18/22 07:24 Transfer of Care Handoff Completed per policy Notes Mental Status: alert / awake / arousable and participated in evaluation Patient Amnestic to Procedure: Yes Nausea / Vomiting: adequately controlled Pain: adequately controlled Airway Patency, RR, SpO2: stable & adequate BP & HR: stable & adequate Hydration State: stable & adequate Neuraxial Anesthesia: was administered and sensory block is resolving Anesthetic Complications: no major complications apparent and Pt Satisfied with anesthetic care
[2022-07-18] MEDS ORDERED: NO NARCOTICS OR SEDATIVES SCH (12:30)
[2022-07-18] MEDS ORDERED: SODIUM CHLORIDE 0.9% 1000ML 1,000 ML IV SCH (12:30)
[2022-07-18] MEDS ORDERED: DC INTRASPINAL MORPHINE SCH (12:30)
[2022-07-18] MEDS ORDERED: KETOROLAC 30 MG/ML VIAL IV SCH (12:45)
[2022-07-18] MEDS: ACETAMINOPHEN 500 MG TAB PO SCH ×2 (14:11→21:58)
[2022-07-18] MEDS ORDERED: TRANEXAMIC ACID / 0.7% NACL 1,000 MG/100 ML BAG IV SCH (17:00)
[2022-07-18] MEDS: KETOROLAC 30 MG/ML VIAL IV SCH ×2 (17:19→21:59)
[2022-07-18] MEDS: ASCORBIC ACID 500 MG TAB PO SCH (18:03)
[2022-07-18] MEDS: Scopolamine CHECK PATCH PLACEMENT SCH (18:03)
[2022-07-18] MEDS: ceFAZolin 2000MG 2,000 MG/15 ML SYR IV SCH (18:04)
[2022-07-18] MEDS: SODIUM CHLORIDE 0.9% 1000ML 1,000 ML IV SCH ×2 (18:04→22:16)
[2022-07-18] MEDS: ASPIRIN 81 MG ECTAB PO SCH (20:43)
[2022-07-18] MEDS: DOCUSATE SODIUM 100 MG CAP PO SCH (20:43)
[2022-07-18] MEDS ORDERED: SENNA 8.6 MG TAB PO SCH (21:00)
[2022-07-19] MEDS: Scopolamine CHECK PATCH PLACEMENT SCH ×2 (00:23→09:20)
[2022-07-19] MEDS: ceFAZolin 2000MG 2,000 MG/15 ML SYR IV SCH (00:23)
[2022-07-19] MEDS: ACETAMINOPHEN 500 MG TAB PO SCH (05:19)
[2022-07-19] MEDS: KETOROLAC 30 MG/ML VIAL IV SCH ×2 (05:19→10:33)
[2022-07-19] MEDS ORDERED: diphenhydrAMINE Capsule 25 MG CAP PO PRN (06:22)
[2022-07-19] MEDS ORDERED: traMADol HCL 50 MG TABLET PO PRN (06:22)
[2022-07-19] MEDS ORDERED: HYDROmorphone INJ 0.5 MG/0.5 ML SYR IV PRN (06:22)
[2022-07-19] MEDS ORDERED: METOCLOPRAMIDE HCL INJ 5 MG/ML 2 ML VIAL IV PRN (06:22)
[2022-07-19] MEDS ORDERED: dexAMETHasone 10 MG in SYRINGE 0 ML IV SCH (08:00)
--- NOTE | 2022-07-19 08:51 | Progress Notes ---
DATE OF NOTE: 07/19/2022 SUBJECTIVE: A 42-year-old gentleman postoperative day 1 from a left hip replacement. He is doing pr juan well. Pain is controlled. He has been getting around with a walker. No chest pain or shortnes s of breath. Not feeling dizzy or lightheaded. OBJECTIVE: VITAL SIGNS: Temperature 36.7. Vital signs are stable. GENERAL: Shows a pleasant middle-aged male. He has been walking around in his room with his walker, doing pretty well. LUNGS: Clear to auscultation. HEART: Regular rate and rhythm. ABDOMEN: Soft, nontender, nondistended. EXTREMITIES: Grossly neurovascularly intact except as follows. Examination of the left leg reveals the dressing to be clean, dry and intact. His thigh is soft and supple. Hip is located. He is neurologically intact. LABORATORY DATA: Hemoglobin 13.2. Hematocrit 39.4. Electrolytes are stable. ASSESSMENT: A 42-year-old gentleman with avascular necrosis postoperative day 1 from left hip replac ement, doing well. Pain is controlled. Hip is located. He is neurologically intact. PLAN: 1. DVT prophylaxis includes thigh-high TEDs, SCDs, and aspirin twice a day. 2. PT/OT, weightbear as tolerated. Left total hip protocol. 3. Pain control, doing okay with current pain regimen. 4. Disposition: Plan to discharge to home with some home health later today if does okay in therapy . Job ID: [id number]
[2022-07-19 08:59] LABS: Basophils # (auto) 0.03 K/uL (0-0.2); Basophils % (auto) 0.4 %; Hematocrit (blood only) 34.1 % (40.1-51.0); Hemoglobin 11.5 g/dl (14.0-18.0); Immature Granulocytes # (auto) 0.03 K/uL (0.00-0.02); Immature Granulocytes % (auto) 0.4 %; Lymphocytes # (auto) 0.85 K/uL (1.2-3.4); Lymphocytes % (auto) 11.2 %; Mean Corpuscular Hemoglobin 31.3 pg (25.0-34.0); Mean Corpuscular Hgb Conc 33.7 g/dL (32.0-36.0); Mean Corpuscular Volume 92.9 fL (80.0-100.0); Mean Platelet Volume 11.3 fL (9.4-12.4); Monocytes # (auto) 0.59 K/uL (0.24-0.82); Monocytes % (auto) 7.8 %; Neutrophils # (auto) 5.78 K/uL (1.4-6.5); Neutrophils % (auto) 76.2 %; Platelet Count 198 K/uL (130-400); RDW Coefficient of Variation 12.4 % (11.5-14.5); RDW Standard Deviation 42.2 fL (36.4-46.3); Red Blood Count 3.67 M/uL (4.63-6.08); White Blood Count 7.58 K/ul (4.8-10.8)
[2022-07-19] MEDS ORDERED: MULTIVITAMIN TAB PO SCH (09:00)
[2022-07-19] MEDS ORDERED: PANTOprazole 40 MG TAB PO SCH (09:00)
[2022-07-19] MEDS ORDERED: MULTIVIT MIN FOLIC VIT K LYCOP PO SCH (09:00)
[2022-07-19] MEDS ORDERED: CITALOPRAM 20 MG TAB PO SCH (09:00)
[2022-07-19] MEDS ORDERED: DOCUSATE SODIUM/SENNA 50/8.6MG TAB PO SCH (09:00)
[2022-07-19] MEDS: DOCUSATE SODIUM 100 MG CAP PO SCH (09:19)
[2022-07-19] MEDS: ASPIRIN 81 MG ECTAB PO SCH (09:20)
[2022-07-19] MEDS: ASCORBIC ACID 500 MG TAB PO SCH (09:20)
[2022-07-19 09:27] LABS: BUN Creatinine Ratio 11.5 (10-20); Calcium 8.6 mg/dl (8.5-10.1); Creatinine Clr Calc Pharmacy 108.3 ml/min; Est GFR (African American) 113.3 ml/min; Est GFR (Non-African American) 97.8 ml/min
[2022-07-19] MEDS ORDERED: traZODone HCL 100 MG TAB PO SCH (21:00)
--- NOTE | 2022-07-22 13:25 | Discharge Summary ---
Date of Service July 22, 2022 Discharge Data Procedures Performed Operation Date: 07/18/22 08:50 Actual Procedures p Left Total Hip Arthroplasty(Left) - Bobby Sun MD Hospital Course (1) S/P total left hip arthroplasty: This is a 42 year old patient admitted on 07/18/22 and underwent total hip arthroplasty. He tolerated the procedure well and there were no complications. Transferred to the PACU post op and later to the orthopedic floor for further care. He was given ancef for antibiotic prophylaxis. He was also given JIMI stockings, SCDs, and aspirin for DVT prophylaxis. Hemoglobin, hematocrit, and vital signs were monitored during his hospital stay and remained stable. Did not require any blood transfusions. There were no complications during his hospital stay. By post op day #1 the patient was tolerating a regular diet, pain was reasonably controlled with oral pain medicine, and he was participating in physical therapy. On post op day #1 the patient was discharged home and set up with home health care. He was given printed discharge instructions including prescriptions for extra strength tylenol, aspirin, ketorolac, zofran, senokot, and tramadol. Continue physical therapy, weight bearing as tolerated. Continue JIMI stockings. Continue hip precautions. Follow up approximately 2 weeks post op or sooner if there are problems or concerns. Coding Level of Care Code None Diagnoses S/P total left hip arthroplasty Z96.642
== END 2022-07-19 12:31 | disposition home health service (06) ==
LOC: PACUINP 06:36 → ASU 06:36 → 3E 15:45
DX: Z79.899 Other long term (current) drug therapy; Z79.82 Long term (current) use of aspirin; M16.12 Unilateral primary osteoarthritis, left hip; M87.051 Idiopathic aseptic necrosis of right femur